=== PATIENT | male | born 1945 | race Caucasian/White ===

== ENCOUNTER 2016-11-18 17:29 | Emergency (ER) | payer MEDICARE, BC ==
[2016-11-18] MEDS ORDERED: Sodium Chloride 0.9% 1,000 ML IV ONE (19:08)
[2016-11-18] MEDS ORDERED: Sodium Chloride 0.9% 10 ML Syringe FLUSH PRN (19:08)
--- NOTE | 2016-11-18 19:16 | EDM.PDOC ---
ED HPI GENERAL MEDICAL PROBLEM - General Chief Complaint: General Stated Complaint: WEAKNESS, UPSET STOMACH Time Seen by Provider: 11/18/16 18:40 Source of Information: Reports: Patient History Limitations: Reports: No limitations - History of Present Illness INITIAL COMMENTS - FREE TEXT/NARRATIVE: c/o malaise and anorexia x 3d pt with choly 07-30-16 in [place], thinks it was infected had a chronic sore on his R 2nd toe, had been on antbx's BID x 2m, not sure of the name of the antbx, finally had amputation by Dr Yadav in [place] 5d ago, has f /u apt in 4d with Dr Yadav PCP Dr Velasquez no pain, had abd bloating and belching, no N/V, just does not feel like eating has taken diet shakes off-and-on for past several yrs, had 2 shakes today, drank 3-4 8-oz glasses H2O today no f/c/d BS 110 postop, BS 180 at 0700 today before eating, much higher than usual which got him concerned, last A1C 5.4, only DM med is metformin 1000 mg BID, usual AM BS 104-110 last WBC 14.3 and BUN/creat 31/1.5 here on 09-22-16, previous CRP >20 07-29-16 just prior to his choly not taking pain meds has PAD bn/l, L>R went home same day from hospital, 5d ago, ate fine 4d ago 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 - Related Data Allergies Allergy/AdvReac Type Severity Reaction Status Date / Time No Known Allergies Allergy Verified 11/18/16 17:58 Home Meds: Home Meds Clopidogrel Bisulfate [Clopidogrel] 75 mg PO DAILY 07/29/16 [History] Hydrochlorothiazide [Hydrochlorothiazide] 25 mg PO DAILY 07/29/16 [History] Lisinopril [Lisinopril] 10 mg PO DAILY 07/29/16 [History] Metoprolol Succinate [Toprol XL] 25 mg PO DAILY 07/29/16 [History] atorvaSTATin [Lipitor] 80 mg PO BEDTIME 07/29/16 [History] metFORMIN HCl [Metformin HCl] 1,000 mg PO BID 07/29/16 [History] Past Medical History HEENT History: Reports: Impaired vision Cardiovascular History: Reports: High cholesterol, Hypertension Musculoskeletal History: Reports: Arthritis, Other (see below) Other Musculoskeletal History: hip pain Endocrine/Metabolic History: Reports: Diabetes, type II Dermatologic History: Reports: Venous stasis dermatitis - Infectious Disease History Infectious Disease History: Reports: Chicken pox, Measles - Past Surgical History HEENT Surgical History: Reports: Tonsillectomy Cardiovascular Surgical History: Reports: Percutaneous transluminal angioplasty GI Surgical History: Reports: Appendectomy, Cholecystectomy Musculoskeletal Surgical History: Reports: Other (see below) Other Musculoskeletal Surgeries/Procedures:: amputated toe Social & Family History - Family History Family Medical History: Noncontributory - Tobacco Use Smoking Status *Q: Never Smoker Second Hand Smoke Exposure: No - Caffeine Use Caffeine Use: Reports: Coffee, Soda - Recreational Drug Use Recreational Drug Use: No ED ROS GENERAL - Review of Systems Review Of Systems: See Below Constitutional: Reports: malaise, weakness, decreased appetite HEENT: Reports: No symptoms Respiratory: Reports: No Symptoms Cardiovascular: Reports: No symptoms Endocrine: Reports: no symptoms GI/Abdominal: Reports: Distension, Other (belching) : Reports: no symptoms Musculoskeletal: Reports: no symptoms Skin: Reports: no symptoms Neurological: Reports: No Symptoms Psychiatric: Reports: No symptoms Hematologic/Lymphatic: Reports: no symptoms Immunologic: Reports: no symptoms ED EXAM, GENERAL - Physical Exam Exam: See Below Exam Limited By: No limitations General Appearance: alert, WD/WN, other (lying supine on table, appears relaxed , fatigued, nontoxic, alert, conversant, not acutely ill) Eye Exam: bilateral eye: normal inspection Ears: normal external exam, hearing grossly normal Nose: normal inspection, normal mucosa, no blood Throat/Mouth: Normal inspection, Normal voice, No airway compromise Head: atraumatic, normocephalic Neck: normal inspection, supple, non-tender, full range of motion Respiratory/Chest: no respiratory distress, lungs clear, normal breath sounds, no accessory muscle use, chest non-tender Cardiovascular: regular rate, rhythm, no rub, other (2/6 FERNANDO at LSB) Peripheral Pulses: 2+: dorsalis pedis (L) GI/Abdominal: normal bowel sounds, soft, non tender, no organomegaly Back Exam: normal inspection Extremities: other (dressing L foot changed daily, last changed 1d ago, minimal d/c on dressing, red serous, no purulence, missing 1st 2 digits (great toe removed at earlier surgery), sutures intact, minimal swell out 1 cm, slight red out 1 cm which is better as per , slight warm out 1 cm, no active d/c) Psychiatric: normal affect, normal mood Skin Exam: Other (b/l VSD changes in pretib area with loss of hair and dark to mar[place] skin, dec'd turgor UE b/lw ith 0.5 sec tenting) Lymphatic: no adenopathy Course - Vital Signs Last Recorded V/S: Last Vital Signs Temp 37.1 C 11/18/16 18:05 Pulse 71 11/18/16 18:05 Resp 20 11/18/16 18:05 BP 125/101 H 11/18/16 18:05 Pulse Ox 99 11/18/16 18:05 - Orders/Labs/Meds Orders: Active Orders 24 hr Category Date Time Status Sodium Chloride 0.9% [Saline Flush] Med 11/18/16 19:08 Active 10 ml FLUSH ASDIRECTED PRN Saline Lock Insert [OM.PC] Routine Oth 11/18/16 19:08 Ordered Medication Orders Sodium Chloride (Saline Flush) 10 ml FLUSH ASDIRECTED PRN PRN Reason: Keep Vein Open Last Admin: 11/18/16 19:23 Dose: 10 ml Labs: Laboratory Tests 11/18/16 11/18/16 11/18/16 Range/Units 19:20 19:20 19:20 WBC 12.0 (4.5-12.0) X10-3/uL RBC 4.82 (4.30-5.75) x10(6)uL Hgb 12.7 (11.5-15.5) g/dL Hct 38.2 (30.0-51.3) % MCV 79.2 L (80-96) fL MCH 26.3 L (27.7-33.6) pg MCHC 33.2 (32.2-35.4) g/dL RDW 14.7 (11.5-15.5) % Plt Count 371 H (125-369) X10(3)uL MPV 7.3 L (7.4-10.4) fL Neut % (Auto) 63.8 (46-82) % Lymph % (Auto) 23.0 (13-37) % [place] % (Auto) 9.4 (4-12) % Eos % (Auto) 3 (1.0-5.0) % Baso % (Auto) 1 (0-2) % Neut # (Auto) 7.6 (1.6-8.3) # Lymph # (Auto) 2.8 (0.6-5.0) # [place] # (Auto) 1.1 (0.0-1.3) # Eos # (Auto) 0.4 (0.0-0.8) # Baso # (Auto) 0.1 (0.0-0.2) # Sodium 131 L (135-145) mmol/L Potassium 5.1 D (3.5-5.3) mmol/L Chloride 97 L (100-110) mmol/L Carbon Dioxide 26 (23-29) mmol/L BUN 30 H (8-23) mg/dL Creatinine 1.3 (0.6-1.3) mg/dL Est Cr Clr Drug Dosing 58.90 mL/min Estimated GFR (MDRD) 54 L (>60) BUN/Creatinine Ratio 23.1 H (9-20) Glucose 145 H (80-116) mg/dL Lactic Acid 1.5 (0.5-2.2) mmol/L Calcium 9.3 (8.6-10.2) mg/dL Total Bilirubin 0.8 (0.1-1.3) mg/dL AST 15 D (5-27) IU/L ALT 20 (14-26) IU/L Alkaline Phosphatase 84 (56-112) IU/L C-Reactive Protein 2.7 H* (0.0-1.0) mg/dL Total Protein 7.4 (6.0-8.0) g/dL Albumin 3.7 (3.2-4.6) g/dL Globulin 3.7 g/dL Albumin/Globulin Ratio 1.0 Urine Color (YELLOW) Urine Appearance (CLEAR) Urine pH (5.0-6.5) Ur Specific [place] (1.010-1.025) Urine Protein (NEGATIVE) mg/dL Urine Glucose (UA) (NEGATIVE) mg/dL Urine Ketones (NEGATIVE) mg/dL Urine Occult Blood (NEGATIVE) Urine Nitrite (NEGATIVE) Urine Bilirubin (NEGATIVE) Urine Urobilinogen (NEGATIVE) mg/dL Ur Leukocyte Esterase (NEGATIVE) Urine RBC (0) Urine WBC (0) Ur Squamous Epith Cells (NS,R,O) Urine Bacteria (NS) 11/18/16 Range/Units 20:40 WBC (4.5-12.0) X10-3/uL RBC (4.30-5.75) x10(6)uL Hgb (11.5-15.5) g/dL Hct (30.0-51.3) % MCV (80-96) fL MCH (27.7-33.6) pg MCHC (32.2-35.4) g/dL RDW (11.5-15.5) % Plt Count (125-369) X10(3)uL MPV (7.4-10.4) fL Neut % (Auto) (46-82) % Lymph % (Auto) (13-37) % [place] % (Auto) (4-12) % Eos % (Auto) (1.0-5.0) % Baso % (Auto) (0-2) % Neut # (Auto) (1.6-8.3) # Lymph # (Auto) (0.6-5.0) # [place] # (Auto) (0.0-1.3) # Eos # (Auto) (0.0-0.8) # Baso # (Auto) (0.0-0.2) # Sodium (135-145) mmol/L Potassium (3.5-5.3) mmol/L Chloride (100-110) mmol/L Carbon Dioxide (23-29) mmol/L BUN (8-23) mg/dL Creatinine (0.6-1.3) mg/dL Est Cr Clr Drug Dosing mL/min Estimated GFR (MDRD) (>60) BUN/Creatinine Ratio (9-20) Glucose (80-116) mg/dL Lactic Acid (0.5-2.2) mmol/L Calcium (8.6-10.2) mg/dL Total Bilirubin (0.1-1.3) mg/dL AST (5-27) IU/L ALT (14-26) IU/L Alkaline Phosphatase (56-112) IU/L C-Reactive Protein (0.0-1.0) mg/dL Total Protein (6.0-8.0) g/dL Albumin (3.2-4.6) g/dL Globulin g/dL Albumin/Globulin Ratio Urine Color Yellow (YELLOW) Urine Appearance Clear (CLEAR) Urine pH 5.0 (5.0-6.5) Ur Specific [place] 1.020 (1.010-1.025) Urine Protein Negative (NEGATIVE) mg/dL Urine Glucose (UA) Normal (NEGATIVE) mg/dL Urine Ketones 15 H (NEGATIVE) mg/dL Urine Occult Blood Negative (NEGATIVE) Urine Nitrite Negative (NEGATIVE) Urine Bilirubin Small H (NEGATIVE) Urine Urobilinogen Normal (NEGATIVE) mg/dL Ur Leukocyte Esterase Negative (NEGATIVE) Urine RBC Not seen (0) Urine WBC 0-5 (0) Ur Squamous Epith Cells Many H (NS,R,O) Urine Bacteria Few H (NS) Meds: Medications Generic Name Dose Route Start Last Admin Trade Name Freq PRN Reason Stop Dose Admin Sodium Chloride 10 ml 11/18/16 19:08 11/18/16 19:23 Saline Flush FLUSH 10 ml ASDIRECTED PRN Administration Keep Vein Open Discontinued Medications Generic Name Dose Route Start Last Admin Trade Name Freq PRN Reason Stop Dose Admin Sodium Chloride 1,000 mls @ 999 mls/hr 11/18/16 19:08 11/18/16 19:23 Normal Saline IV 11/18/16 20:08 999 mls/hr .BOLUS ONE Administration - Re-Assessments/Exams Free Text/Narrative Re-Assessment/Exam: 11/18/16 21:40 labs reviewed with pt, other dehydration pt's labs are fairly unremarkable, mild inc of CRP c/w postop healing, no clear indication of infection, no clear reason for his current anorexia, however no leukocytosis or left shift or fever , pt cautioned that infection still needs to be considered and that monitoring him closely will b Departure - Departure Time of Disposition: 21:42 Disposition: Home, Self-Care 01 Condition: good Clinical Impression: Dehydration Forms: ED Department Discharge Additional Instructions: Continue on current meds. Increase fluids, at least 2 liters daily without caffeine. Increase nutrition. Rest. May work but do not overdo it. See your surgeon Dr Yadav in 4 days as scheduled. See your PCP in 2 days if you are not better. Return to ED if you are feeling worse. Call your Physician or Return to Emergency Department if: * Your condition worsens in any way. * You develop fever greater than 100.4. * You have vomiting that does not stop with medications. * You have pain that is not controlled with medications. - My Orders Last 24 Hours: My Active Orders 11/18/16 19:08 Sodium Chloride 0.9% [Saline Flush] 10 ml FLUSH ASDIRECTED PRN Saline Lock Insert [OM.PC] Routine - Assessment/Plan Last 24 Hours: My Active Orders 11/18/16 19:08 Sodium Chloride 0.9% [Saline Flush] 10 ml FLUSH ASDIRECTED PRN Saline Lock Insert [OM.PC] Routine
[2016-11-18 22:17] VITALS: BP 108/61
== END 2016-11-18 22:07 | disposition home or self-care (01) ==
LOC: FB.ED 17:29
DX: E86.0 Dehydration (principal); I10 Essential (primary) hypertension; E78.00 Pure hypercholesterolemia, unspecified; E11.9 Type 2 diabetes mellitus without complications; M19.90 Unspecified osteoarthritis, unspecified site; Z79.899 Other long term (current) drug therapy; Z79.84 Long term (current) use of oral hypoglycemic drugs; Z90.49 Acquired absence of other specified parts of digestive tract; Z98.890 Other specified postprocedural states
CPT/HCPCS: 36415; 80053; 81001; 83605; 85025; 86140; 96360; 99284; J7040; J7050

== ENCOUNTER 2016-11-20 11:03 | Observation (INO) | payer MEDICARE, BC ==
[2016-11-20] MEDS ORDERED: Sodium Chloride 0.9% 1,000 ML IV ONE (11:14)
--- NOTE | 2016-11-20 12:13 | CR ---
INDICATION: Syncope. CHEST: AP portable upright view of the chest was obtained. No comparison chest x-ray was available. The heart did not appear enlarged. The aorta is minimally tortuous with minimal calcification suggested in the arch of the aorta. Overlying EKG leads are noted. An active infiltrate or effusion was not identified. IMPRESSION: No acute process. MTDD
--- NOTE | 2016-11-20 12:19 | EDM.PDOC ---
[id number] Time Seen by Provider: 11/20/16 11:03 Source: Reports: Patient History Limitations: Reports: No limitations - History of Present Illness INITIAL COMMENTS - FREE TEXT/NARRATIVE: c/o syncope pt seen here in ED 2d ago by myself with c/o malaise and anorexia, w/u neg except for dehydration, he was advised to drink more fluids and to continue his protein shakes. Lab w/u was unrevealing except for the dehydration. 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 Today he was not feeling better and called PCP for an apt today, as he had been instructed. While talking to Dr Velasquez he felt lightheaded and had a syncopal episode. Did not eat bfast, took all of his AM meds. Dr Velasquez was considering decreasing some of his meds when he had the syncopal event. SBP 110 when lying on floor, BP 117/55 by EMS, BP 95/55 later here, HR low 60s as per EMS, BS 165 per EMS. has been on antibiotics x 2m for toe ulcer, had toe amputation 6d ago no f/c/d Dr Velasquez requested a cardiac w/u minor chronic back pain now, otherwise no pain her, no sob - Related Data Allergies/ADRs: Allergies Allergy/AdvReac Type Severity Reaction Status Date / Time No Known Allergies Allergy Verified 11/20/16 11:20 Home Meds: Home Meds Clopidogrel Bisulfate [Clopidogrel] 75 mg PO DAILY 07/29/16 [History] Hydrochlorothiazide [Hydrochlorothiazide] 25 mg PO DAILY 07/29/16 [History] Lisinopril [Lisinopril] 10 mg PO DAILY 07/29/16 [History] Metoprolol Succinate [Toprol XL] 25 mg PO DAILY 07/29/16 [History] atorvaSTATin [Lipitor] 80 mg PO BEDTIME 07/29/16 [History] metFORMIN HCl [Metformin HCl] 1,000 mg PO BID 07/29/16 [History] Past Medical History HEENT History: Reports: Impaired vision Cardiovascular History: Reports: High cholesterol, Hypertension Musculoskeletal History: Reports: Arthritis, Other (see below) Other Musculoskeletal History: hip pain Endocrine/Metabolic History: Reports: Diabetes, type II Dermatologic History: Reports: Venous stasis dermatitis - Infectious Disease History Infectious Disease History: Reports: Chicken pox, Measles - Past Surgical History HEENT Surgical History: Reports: Tonsillectomy Cardiovascular Surgical History: Reports: Percutaneous transluminal angioplasty GI Surgical History: Reports: Appendectomy, Cholecystectomy Musculoskeletal Surgical History: Reports: Other (see below) Other Musculoskeletal Surgeries/Procedures:: amputated toe Social & Family History - Family History Family Medical History: Noncontributory - Tobacco Use Smoking Status *Q: Never Smoker Second Hand Smoke Exposure: No - Caffeine Use Caffeine Use: Reports: Coffee - Recreational Drug Use Recreational Drug Use: No ED ROS GENERAL - Review of Systems Review Of Systems: See Below Constitutional: Reports: weakness, decreased appetite HEENT: Reports: No symptoms Respiratory: Reports: No Symptoms Cardiovascular: Reports: No symptoms Endocrine: Reports: no symptoms GI/Abdominal: Reports: No symptoms : Reports: no symptoms Musculoskeletal: Reports: no symptoms Skin: Reports: no symptoms Neurological: Reports: Syncope Psychiatric: Reports: No symptoms Hematologic/Lymphatic: Reports: no symptoms Immunologic: Reports: no symptoms ED EXAM, NEURO - Physical Exam Exam: See Below Exam Limited By: No limitations General Appearance: alert, WD/WN, no apparent distress, other (pleasant, alert, nontoxic, NAD, conversant) Eye Exam: bilateral eye: EOMI, normal inspection Ears: normal external exam, hearing grossly normal Nose: normal inspection, normal mucosa, no blood Throat/Mouth: Normal inspection, Normal lips, Normal teeth, Normal gums, Normal oropharynx, Normal voice, No airway compromise Head Exam: atraumatic, normocephalic Neck: normal inspection, supple, non-tender, full range of motion Respiratory/Chest: no respiratory distress, lungs clear, normal breath sounds, no accessory muscle use, chest non-tender Cardiovascular: regular rate, rhythm, no edema, no gallop, no rub, other (no tachy, 2/6 FERNANDO at LSB) GI/Abdominal: normal bowel sounds, soft, non tender, no organomegaly, no distention, no mass Neurological: alert, normal mood/affect, CN II-XII intact, no motor/sensory deficits, oriented x 3 Back Exam: normal inspection, full range of motion, NT Extremities: normal inspection, normal range of motion, non-tender, no pedal edema, normal capillary refill Psychiatric: normal affect, normal mood Skin Exam: Warm, Dry, Intact, Normal color, No rash Course - Vital Signs Last Recorded V/S: Last Vital Signs Temp 36.6 C 11/20/16 14:07 Pulse 62 11/20/16 14:07 Resp 16 11/20/16 14:07 BP 122/62 11/20/16 14:07 Pulse Ox 98 11/20/16 14:07 Orthostatic Blood Pressure [ 105/63 Standing] Orthostatic Blood Pressure [ 116/57 Sitting] Orthostatic Blood Pressure [ 132/68 Supine] - Orders/Labs/Meds Orders: Active Orders 24 hr Category Date Time Status Patient Status [ADT] Routine ADT 11/20/16 13:45 Active Intake and Output [RC] 06,14,22 Care 11/20/16 13:47 Active Orthostatic Vital Signs [RC] ASDIRECTED Care 11/20/16 12:59 Active Oxygen Therapy [RC] PRN Care 11/20/16 13:45 Active Up With Assistance [RC] ASDIRECTED Care 11/20/16 13:44 Active VTE/DVT Education [RC] Per Unit Routine Care 11/20/16 13:45 Active Vital Signs [RC] Q4H Care 11/20/16 13:45 Active 2 Gram Sodium Diet [DIET] Diet 11/20/16 Dinner Active UA W/MICROSCOPIC [URIN] Stat Lab 11/20/16 11:11 Uncollected Resuscitation Status Routine Resus Stat 11/20/16 13:44 Ordered EKG 12 Lead [EK] Routine Ther 11/20/16 11:11 Ordered Medication Orders Atorvastatin Calcium (Lipitor) 80 mg PO BEDTIME [facility] Clopidogrel Bisulfate (Plavix) 75 mg PO DAILY [facility] Enoxaparin Sodium (Lovenox) 40 mg SUBCUT Q24H [facility] Last Admin: 11/20/16 14:47 Dose: 40 mg Sodium Chloride (Normal Saline) 1,000 mls @ 100 mls/hr IV ASDIRECTED [facility] Last Admin: 11/20/16 14:45 Dose: 100 mls/hr Metoprolol Succinate (Toprol Xl) 25 mg PO DAILY [facility] Labs: Laboratory Tests 11/20/16 11/20/16 11/20/16 Range/Units 11:25 11:25 11:25 WBC 11.6 (4.5-12.0) X10-3/uL RBC 4.76 (4.30-5.75) x10(6)uL Hgb 12.5 (11.5-15.5) g/dL Hct 38.6 (30.0-51.3) % MCV 81.1 (80-96) fL MCH 26.3 L (27.7-33.6) pg MCHC 32.5 (32.2-35.4) g/dL RDW 15.0 (11.5-15.5) % Plt Count 306 (125-369) X10(3)uL MPV 7.6 (7.4-10.4) fL Add Manual Diff Yes Neutrophils % (Manual) 75 (46-82) % Lymphocytes % (Manual) 16 (13-37) % Monocytes % (Manual) 8 (4-12) % Eosinophils % (Manual) 1 (0-5) % Poikilocytosis Few Ovalocytes Few [place] Cells Moderate H Sodium 130 L (135-145) mmol/L Potassium 4.3 (3.5-5.3) mmol/L Chloride 98 L (100-110) mmol/L Carbon Dioxide 18 L (23-29) mmol/L BUN 21 (8-23) mg/dL Creatinine 1.2 (0.6-1.3) mg/dL Est Cr Clr Drug Dosing 63.81 mL/min Estimated GFR (MDRD) 60 (>60) BUN/Creatinine Ratio 17.5 (9-20) Glucose 164 H (80-116) mg/dL Lactic Acid (0.5-2.2) mmol/L Calcium 8.7 (8.6-10.2) mg/dL Total Bilirubin 1.0 (0.1-1.3) mg/dL AST 27 D (5-27) IU/L ALT 28 H D (14-26) IU/L Alkaline Phosphatase 89 (56-112) IU/L Creatine Kinase 48 L (60-160) IU/L Troponin I < 0.01 L (0.02-0.06) NG/ML C-Reactive Protein 2.1 H (0.0-1.0) mg/dL B-Natriuretic Peptide (0-100) pg/mL Total Protein 7.0 (6.0-8.0) g/dL Albumin 3.7 (3.2-4.6) g/dL Globulin 3.3 g/dL Albumin/Globulin Ratio 1.1 11/20/16 11/20/16 Range/Units 11:25 11:25 WBC (4.5-12.0) X10-3/uL RBC (4.30-5.75) x10(6)uL Hgb (11.5-15.5) g/dL Hct (30.0-51.3) % MCV (80-96) fL MCH (27.7-33.6) pg MCHC (32.2-35.4) g/dL RDW (11.5-15.5) % Plt Count (125-369) X10(3)uL MPV (7.4-10.4) fL Add Manual Diff Neutrophils % (Manual) (46-82) % Lymphocytes % (Manual) (13-37) % Monocytes % (Manual) (4-12) % Eosinophils % (Manual) (0-5) % Poikilocytosis Ovalocytes [place] Cells Sodium (135-145) mmol/L Potassium (3.5-5.3) mmol/L Chloride (100-110) mmol/L Carbon Dioxide (23-29) mmol/L BUN (8-23) mg/dL Creatinine (0.6-1.3) mg/dL Est Cr Clr Drug Dosing mL/min Estimated GFR (MDRD) (>60) BUN/Creatinine Ratio (9-20) Glucose (80-116) mg/dL Lactic Acid 1.6 (0.5-2.2) mmol/L Calcium (8.6-10.2) mg/dL Total Bilirubin (0.1-1.3) mg/dL AST (5-27) IU/L ALT (14-26) IU/L Alkaline Phosphatase (56-112) IU/L Creatine Kinase (60-160) IU/L Troponin I (0.02-0.06) NG/ML C-Reactive Protein (0.0-1.0) mg/dL B-Natriuretic Peptide 48 (0-100) pg/mL Total Protein (6.0-8.0) g/dL Albumin (3.2-4.6) g/dL Globulin g/dL Albumin/Globulin Ratio Meds: Medications Generic Name Dose Route Start Last Admin Trade Name Freq PRN Reason Stop Dose Admin Atorvastatin Calcium 80 mg 11/20/16 21:00 Lipitor PO BEDTIME ASHLEY Clopidogrel Bisulfate 75 mg 11/21/16 09:00 Plavix PO DAILY ASHLEY Enoxaparin Sodium 40 mg 11/20/16 14:00 11/20/16 14:47 Lovenox SUBCUT 40 mg Q24H ASHLEY Administration Sodium Chloride 1,000 mls @ 100 mls/hr 11/20/16 14:00 11/20/16 14:45 Normal Saline IV 100 mls/hr ASDIRECTED ASHLEY Administration Metoprolol Succinate 25 mg 11/21/16 09:00 Toprol Xl PO DAILY ASHLEY Discontinued Medications Generic Name Dose Route Start Last Admin Trade Name Freq PRN Reason Stop Dose Admin Sodium Chloride 1,000 mls @ 999 mls/hr 11/20/16 11:14 11/20/16 11:49 Normal Saline IV 11/20/16 12:14 999 mls/hr .BOLUS ONE Administration - Re-Assessments/Exams Free Text/Narrative Re-Assessment/Exam: 11/20/16 13:38 still orthostatic after 2 liters NS, BP 132/68 with HR 61 supine, BP 105/63 with HR 73 standing d/w Dr Velasquez who recommended admitting to observation to Dr Nava, holding HCTZ and lisinopril and metformin CRP is lower in 2d to 2.1, c/w healing of toe amputation unable to produce a urine for u/a after 2 liters NS, u/a was neg 2d ago BUN dec'd 30 to 21 in past 2d, indicating pt is drinking more at home, yet still is orthostatic Departure - Departure Time of Disposition: 14:00 Disposition: Refer to Observation Condition: good Clinical Impression: Syncope, Orthostasis, Dehydration, Hyponatremia - My Orders Last 24 Hours: My Active Orders 11/20/16 11:11 UA W/MICROSCOPIC [URIN] Stat EKG 12 Lead [EK] Routine 11/20/16 12:59 Orthostatic Vital Signs [RC] ASDIRECTED 11/20/16 13:44 Up With Assistance [RC] ASDIRECTED Resuscitation Status Routine 11/20/16 13:45 Patient Status [ADT] Routine Oxygen Therapy [RC] PRN VTE/DVT Education [RC] Per Unit Routine Vital Signs [RC] Q4H 11/20/16 13:47 Intake and Output [RC] 06,14,22 11/20/16 Dinner 2 Gram Sodium Diet [DIET] - Assessment/Plan Last 24 Hours: My Active Orders 11/20/16 11:11 UA W/MICROSCOPIC [URIN] Stat EKG 12 Lead [EK] Routine 11/20/16 12:59 Orthostatic Vital Signs [RC] ASDIRECTED 11/20/16 13:44 Up With Assistance [RC] ASDIRECTED Resuscitation Status Routine 11/20/16 13:45 Patient Status [ADT] Routine Oxygen Therapy [RC] PRN VTE/DVT Education [RC] Per Unit Routine Vital Signs [RC] Q4H 11/20/16 13:47 Intake and Output [RC] 06,14,22 11/20/16 Dinner 2 Gram Sodium Diet [DIET]
[2016-11-20] MEDS ORDERED: Enoxaparin 40 MG/0.4 ML Syringe SUBCUT SCH ×2 (13:45→14:00)
[2016-11-20] MEDS: Sodium Chloride 0.9% 1,000 ML IV SCH (14:45)
[2016-11-20] MEDS ORDERED: Loperamide 2 MG Cap PO PRN (17:16)
[2016-11-20] MEDS ORDERED: Ondansetron 4 MG Tab.DIS PO PRN (17:16)
--- NOTE | 2016-11-20 17:22 | PCM.HP ---
H&P History of Present Illness - General Date of Service: 11/20/16 Admit Problem/Dx: Admission Diagnosis/Problem Admission Diagnosis/Problem Syncope Source of Information: Patient, Old records, RN notes reviewed History Limitations: Reports: No limitations - History of Present Illness Initial Comments - Free Text/Narative: 71-year-old male was brought in to the ER by the . He was in the doctor's office office when he developed syncope,while seated. He lost consciousness for an unclear period of time,but no seizure activity. He had been unwell for the last week with decreased oral intake, dehydration, nausea, no appetite and diarrhea which started this morning. He also had toe surgery last Sunday and was put on Augmentin. It's been generally feeling weak denies any fever chills chest pain or shortness of breath. He has a history of type 2 diabetes, hypertension and peripheral vascular disease. - Related Data Allergies/Adverse Reactions: Allergies Allergy/AdvReac Type Severity Reaction Status Date / Time No Known Allergies Allergy Verified 11/20/16 11:20 Home Medications: Home Meds Clopidogrel Bisulfate [Clopidogrel] 75 mg PO DAILY 07/29/16 [History] Lisinopril [Lisinopril] 10 mg PO DAILY 07/29/16 [History] Metoprolol Succinate [Toprol XL] 25 mg PO DAILY 07/29/16 [History] Amoxicillin/Clavulanate K [Augmentin 875-125 MG] 1 tab PO BID 11/20/16 [History] Aspirin [Adult Low Dose Aspirin EC] 81 mg PO BEDTIME 11/20/16 [History] Loperamide [Imodium] 2 mg PO Q6H PRN 11/20/16 [History] Ondansetron [Zofran] 4 mg PO Q8H PRN 11/20/16 [History] Past Medical History HEENT History: Reports: Impaired vision Cardiovascular History: Reports: High cholesterol, Hypertension, PVD Musculoskeletal History: Reports: Arthritis, Other (see below) Other Musculoskeletal History: hip pain Neurological History: Reports: Neuropathy, diabetic, Neuropathy, peripheral Endocrine/Metabolic History: Reports: Diabetes, type II Oncologic (Cancer) History: Reports: Basal cell carcinoma Other Oncologic History: removed from left shoulder Dermatologic History: Reports: Venous stasis dermatitis - Infectious Disease History Infectious Disease History: Reports: Chicken pox, Measles - Past Surgical History HEENT Surgical History: Reports: Tonsillectomy Cardiovascular Surgical History: Reports: Percutaneous transluminal angioplasty GI Surgical History: Reports: Appendectomy, Cholecystectomy Musculoskeletal Surgical History: Reports: Other (see below) Other Musculoskeletal Surgeries/Procedures:: amputated toe Social & Family History - Family History Family Medical History: Noncontributory - Tobacco Use Smoking Status *Q: Never Smoker Second Hand Smoke Exposure: No - Caffeine Use Caffeine Use: Reports: Coffee Other Caffeine Use: 2 cups QAM - Recreational Drug Use Recreational Drug Use: No H&P Review of Systems - Review of Systems: Review Of Systems: ROS reveals no pertinent complaints other than HPI. Exam - Exam Exam: See Below - Vital Signs Vital Signs: Last Vital Signs Temp 98 F 11/20/16 14:07 Pulse 62 11/20/16 14:07 Resp 16 11/20/16 14:07 BP 122/62 11/20/16 14:07 Pulse Ox 98 11/20/16 14:07 Weight: 119.113 kg - Exam General: alert, oriented, 4 HEENT: PERRLA, Hearing intact, Mucosa moist & pink, Nares patent, Normal nasal septum, Posterior pharynx clear, Conjunctiva clear, EOMI, EACs clear, TMs clear Neck: supple, trachea midline, 2 Lungs: Clear to auscultation, Normal respiratory effort Cardiovascular: regular rate, regular rhythm Abdomen: normal bowel sounds, soft (Male) Exam: No hernia, Normal inspection, Normal prostate, Circumcised Rectal (Males) Exam: Normal exam, Normal rectal tone, Prostate normal, Deferred Back Exam: normal inspection, full range of motion, NT Extremities: normal inspection, other (dressing left toe,big) Skin: warm, dry, intact Neurological: cranial nerves intact, reflexes equal bilateral Neuro Extensive - Mental Status: alert, oriented x3, normal mood/affect, normal cognition Neuro Extensive - Motor, Sensory, Reflexes: CN II-XII intact, normal gait, normal reflexes Psychiatric: alert, normal affect, normal mood - Patient Data Result Diagrams: 11/20/16 11:25 11/20/16 11:25 EKG INTERPRETATION Rhythm: NSR *Q Meaningful Use (ADM) - VTE *Q VTE Criteria *Q: - Stroke *Q Stroke Criteria *Q: - AMI *Q AMI Criteria *Q: - Problem List (1) Diabetes type 2 with atherosclerosis of arteries of extremities SNOMED Code(s): 698821992 ICD Code: E11.59 - TYPE 2 DIABETES MELLITUS WITH OTH CIRCULATORY COMPLICATIONS; I70.209 - UNSP ATHSCL [place] ARTERIES OF EXTREMITIES, UNSP EXTREMITY Status: Acute Current Visit: Yes Problem Details: Continue Accu- Chek, and a diabetic diet. (2) PVD (peripheral vascular disease) SNOMED Code(s): 341981503 ICD Code: I73.9 - PERIPHERAL VASCULAR DISEASE, UNSPECIFIED Status: Chronic Current Visit: Yes Problem Details: Optimize glucose control (3) HTN (hypertension) SNOMED Code(s): 51527056 ICD Code: I10 - ESSENTIAL (PRIMARY) HYPERTENSION Status: Acute Current Visit: Yes Qualifiers: Hypertension type: essential hypertension Qualified Code(s): I10 - Essential (primary) hypertension (4) Diabetic foot ulcer SNOMED Code(s): 742694241 ICD Code: E11.621 - TYPE 2 DIABETES MELLITUS WITH FOOT ULCER; L97.509 - NON- PRESSURE CHRONIC ULCER OTH PRT UNSP FOOT W UNSP SEVERITY Status: Acute Current Visit: Yes Qualifiers: Diabetes mellitus type: type 2 (5) Dehydration SNOMED Code(s): 63114656 ICD Code: E86.0 - DEHYDRATION Status: Acute Current Visit: Yes (6) Orthostasis SNOMED Code(s): 910907143, 327916594 ICD Code: I95.1 - ORTHOSTATIC HYPOTENSION Status: Acute Current Visit: Yes (7) Syncope SNOMED Code(s): 085095502 ICD Code: R55 - SYNCOPE AND COLLAPSE Status: Acute Current Visit: Yes Qualifiers: Syncope type: unspecified Qualified Code(s): R55 - Syncope and collapse Problem List Initiated/Reviewed/Updated: Yes Orders Last 24hrs: Active Orders 24 hr Category Date Time Status Blood Glucose Check, Bedside [] 07,1130,1730,21 Care 11/20/16 13:57 Active Dressing Change [Wound Care] [] ,, Care 11/20/16 13:56 Active EKG Documentation Completion [] ASDIRECTED Care 11/20/16 13:53 Active Telemetry Monitoring [Cardiac Monitoring] [] ,16, Care 11/20/16 14:52 Active Consistent Carbohydrate Diet [DIET] Diet 11/20/16 Dinner Active CV Carotid Duplex Comp [US] Routine Exams 11/20/16 13:54 Taken BASIC METABOLIC PANEL,BMP [CHEM] AM Lab 11/21/16 05:11 Ordered BASIC METABOLIC PANEL,BMP [CHEM] AM Lab 11/22/16 05:11 Ordered CBC WITH AUTO DIFF [HEME] AM Lab 11/21/16 05:11 Ordered CBC WITH AUTO DIFF [HEME] AM Lab 11/22/16 05:11 Ordered TROPONIN I [CHEM] AM Lab 11/21/16 05:11 Ordered Ampicillin/Sulbactam Na [Unasyn] 3 gm Med 11/20/16 17:30 Ordered Sodium Chloride 0.9% [Normal Saline] 100 ml IV Q6HR Aspirin [Adult Low Dose Aspirin EC] Med 11/20/16 21:00 Ordered 81 mg PO BEDTIME Clopidogrel [Plavix] Med 11/21/16 09:00 Active 75 mg PO DAILY Enoxaparin [Lovenox] Med 11/20/16 14:00 Active 40 mg SUBCUT Q24H Insulin Aspart [NovoLOG] Med 11/20/16 18:00 Ordered See Protocol SUBCUT TIDMEALS Loperamide [Imodium] Med 11/20/16 17:16 Ordered 2 mg PO Q6H PRN Metoprolol Succinate [Toprol XL] Med 11/21/16 09:00 Active 25 mg PO DAILY Ondansetron [Zofran] Med 11/20/16 17:16 Ordered 4 mg PO Q8H PRN Sodium Chloride 0.9% [Normal Saline] 1,000 ml Med 11/20/16 14:00 Active IV ASDIRECTED EKG 12 Lead [EK] AM Ther 11/21/16 05:11 Ordered Medication Orders Clopidogrel Bisulfate (Plavix) 75 mg PO DAILY [facility] Enoxaparin Sodium (Lovenox) 40 mg SUBCUT Q24H [facility] Last Admin: 11/20/16 14:47 Dose: 40 mg Sodium Chloride (Normal Saline) 1,000 mls @ 100 mls/hr IV ASDIRECTED [facility] Last Admin: 11/20/16 14:45 Dose: 100 mls/hr Ampicillin Sodium/Sulbactam (Sodium 3 gm/ Sodium Chloride) 100 mls @ 100 mls/ hr IV Q6HR [facility] Insulin Aspart (Novolog) 0 unit SUBCUT TIDMEALS [facility] PRN Reason: Protocol Metoprolol Succinate (Toprol Xl) 25 mg PO DAILY [facility] Assessment/Plan Comment:: His EKG is normal. We will admit him under telemetry. Would replace fluids with normal saline, and encourage oral rehydration and a diabetic diet. I elected to treat his toe infection with Unasyn in place with I to home tomorrow.
[2016-11-20] MEDS: Insulin Aspart 100 Units/ML 3 ML Pen SUBCUT SCH (18:03)
[2016-11-20] MEDS: Ampicillin/Sulbactam Na 3 GM in Sodium Chloride 0.9% 100 ML IV SCH ×2 (18:48→23:51)
[2016-11-20] MEDS ORDERED: atorvaSTATin 40 MG Tab PO SCH (21:00)
[2016-11-20] MEDS ORDERED: Aspirin 81 MG Tab.EC PO SCH (21:00)
[2016-11-21] MEDS: Sodium Chloride 0.9% 1,000 ML IV SCH (01:55)
[2016-11-21] MEDS ORDERED: Acetaminophen 325 MG Tab PO PRN (02:02)
[2016-11-21] MEDS: Ampicillin/Sulbactam Na 3 GM in Sodium Chloride 0.9% 100 ML IV SCH (05:55)
[2016-11-21 07:34] VITALS: BP 104/58
[2016-11-21] MEDS: Insulin Aspart 100 Units/ML 3 ML Pen SUBCUT SCH (07:46)
[2016-11-21] MEDS ORDERED: Clopidogrel 75 MG Tab *PTOM PO SCH (09:00)
[2016-11-21] MEDS ORDERED: Metoprolol Succinate 25 MG Tab.ER *PTOM PO SCH (09:00)
--- NOTE | 2016-11-21 09:06 | PN ---
DATE SEEN: 11/21/2016 REASON FOR VISIT: Syncope. HISTORY OF PRESENT ILLNESS: This is a 71-year-old male who was admitted for syncopal event, thought to be due to dehydration, was seen in the office by Dr. Velasquez and had symptoms while he was there. He had been having problems with eating all the week. He has type 2 diabetes, poorly controlled with a recent diabetic foot ulcer, and amputation of the toe. An ultrasound done yesterday, verbal report showed that he had a "José Manuel" in the left carotid. He has no symptoms of blindness, weakness of one side, or any speech difficulty. Denies any chest pain. SOCIAL HISTORY: Does not smoke. ALLERGIES: Please see the nurses' notes. MEDICATIONS: Please see the nurses' notes. PHYSICAL EXAM: VITAL SIGNS: He has a normal blood pressure this morning of 104/58, temperature is 97.7, pulse is 63. EARS, NOSE, AND THROAT: Negative. HEAD: Normal size. CHEST: Clear. NECK: No carotid bruits. CARDIOVASCULAR: S1 and S2 are normal with sinus arrhythmia. There is a soft murmur around the left lower sternal border. EXTREMITIES: No edema. ABDOMEN: Soft. LABORATORY DATA: Electrolytes are back to normal except sodium 133. Chloride and CO2 normal. Lactic acid negative. Troponin less than 0.01. IMPRESSION: 1. Syncope due to dehydration. 2. Diabetic foot ulcer. 3. Type 2 diabetes. 4. Carotid artery disease. 5. History of peripheral vascular disease. 6. Hypertension, stable. 7. Orthostatic hypotension. PLAN: I will discharge him home today. I will discontinue all his blood pressure medications. I also discontinued metformin and Augmentin. He has a followup appointment with his process engineering intern tomorrow to see if he needs additional antibiotics. He also has an appointment with Dr. Velasquez later next week. In the meantime, continue with diabetic diet. Check blood pressure daily. Return to the ED with any worsening symptoms. I spent more than 35 minutes in discharging this morning. /[id number] [id number] JOHN/MARIAN
[2016-11-21] MEDS ORDERED: METOPROLOL SUCCINATE 25 MG PO ONE (09:45)
--- NOTE | 2016-11-21 14:05 | US ---
INDICATION: Syncope. DUPLEX ULTRASOUND, CEREBRAL ARTERIES: Utilizing 2-D real time, duplex Doppler spectral analysis, and color flow imaging, examination of the cerebral arteries was obtained and revealed antegrade vertebral artery flow bilaterally. Moderate intimal thickening is noted. Irregular, partially calcified plaques are noted at the bifurcations - branches , somewhat more prominent on the left than right. Higher velocities are noted in the right ICA, suggesting at least a moderate degree of stenosis in the mid to distal portion of the left ICA - at least 50-69% stenosis. Visually, stenosis of approximately 50% is suggested bilaterally, although the plaque on the right does not appear as prominent. Ulcerations in plaques bilaterally are suggested. However, there may be some dissection of plaques on the left at the bulb. ICA/CCA ratios were 1.17 and 1.48 on the right and left respectively. The higher velocities in the left ICA were 126, 149, and 153 cm per second, with some elevation of the diastolic values up to 40 in the mid ICA on the left. IMPRESSION: 1. Stenosis in the range of 50-69% bilaterally in the ICAs. Perhaps greater stenosis and possible complication on the left is suggested with the possibility of dissection of the left ICA plaque. Ulcerations in the plaques bilaterally cannot be excluded additionally. 2. Antegrade vertebral artery flow bilaterally. Report faxed to Dr. Nava and Dr. Velasquez on 11/20/2016 at 1410 hours. [facility]
== END 2016-11-21 10:09 | disposition home or self-care (01) ==
LOC: FB.ED 11:03 → INTOOBSV 13:47 → FB.MS 13:47
PROVIDERS: ADMIT Family Medicine; ATTEND Family Medicine
DX: E11.59 Type 2 diabetes mellitus with other circulatory complications (principal); I70.209 Unspecified atherosclerosis of native arteries of extremities, unspecified extremity; I73.9 Peripheral vascular disease, unspecified; I10 Essential (primary) hypertension; L97.509 Non-pressure chronic ulcer of other part of unspecified foot with unspecified severity; E86.0 Dehydration; I95.1 Orthostatic hypotension; R55 Syncope and collapse; Z79.899 Other long term (current) drug therapy; E78.00 Pure hypercholesterolemia, unspecified; Z79.84 Long term (current) use of oral hypoglycemic drugs; Z90.49 Acquired absence of other specified parts of digestive tract; Z98.890 Other specified postprocedural states
CPT/HCPCS: 36415; 71010; 80048; 80053; 81001; 82550; 82962; 83605; 83880; 84484; 85025; 86140; 93005; 93880; 96361; 96365; 96366; 96372; 99285; A9270; G0378; J0295; J1650; J7030; J7040; 96360; 99217; 99219

== ENCOUNTER 2017-01-04 08:19 | Inpatient (IN) | payer MEDICARE, BC ==
[2017-01-04] MEDS: Piperacillin/Tazobactam 4.5 GM in Sodium Chloride 0.9% 100 ML IV SCH ×2 (12:43→20:04)
[2017-01-04] MEDS: Diclofenac Sodium 1% Gel 100 GM Tube TOP SCH ×3 (13:31→20:13)
[2017-01-04] MEDS: Acetaminophen/HYDROcodone 325-5 MG Tab PO PRN ×2 (16:05→20:11)
[2017-01-04] MEDS: metFORMIN 500 MG Tab PO SCH (17:58)
--- NOTE | 2017-01-04 18:27 | PCM.HP ---
H&P History of Present Illness - General Date of Service: 01/04/17 Admit Problem/Dx: Admission Diagnosis/Problem Admission Diagnosis/Problem Osteomyelitis Source of Information: Patient History Limitations: Reports: No Limitations - History of Present Illness Initial Comments - Free Text/Narative: This is a 71-year-old male patient has diabetes and peripheral vascular disease. He had osteomyelitis in the toes of his left foot. He had amputation on 12/26/14. This was of all his toes. He had a balloon AngioJet in his his left leg a few days ago to get blood flow. He's been seeing the infectious disease doctor [facility] and he comes here for antibiotic therapy. He denies fevers, chills, left foot pain. He states he's lost 80 pounds in last couple years. He had hypertension and now is controlled without medications. He states his A1c is running under 6. Right Elbow Pain Score (Numeric/FACES): 4 - Related Data Allergies/Adverse Reactions: Allergies Allergy/AdvReac Type Severity Reaction Status Date / Time No Known Allergies Allergy Verified 11/20/16 11:20 Home Medications: Home Meds Clopidogrel Bisulfate [Clopidogrel] 75 mg PO DAILY 07/29/16 [History] Acetaminophen/HYDROcodone [[place] 325-5 MG] 1 - 2 tab PO Q4H PRN 01/04/17 [ History] Diclofenac Sodium [Voltaren 1%] 4 gm TP QID 01/04/17 [History] Metoprolol Succinate [Toprol XL] 12.5 mg PO DAILY 01/04/17 [History] metFORMIN [Glucophage] 500 mg PO BIDMEALS 01/04/17 [History] Past Medical History HEENT History: Reports: Impaired Vision Cardiovascular History: Reports: High Cholesterol, Hypertension, PVD, Other ( See Below) Gastrointestinal History: Reports: Other (See Below) Other Gastrointestinal History: intermittent constipation/diarrhea due to sahra Musculoskeletal History: Reports: Arthritis, Other (See Below) Other Musculoskeletal History: arthritis - knees, feet, 2 lumbar discs - degenerative joint disease Neurological History: Reports: Neuropathy, Diabetic, Neuropathy, Peripheral, Other (See Below) Endocrine/Metabolic History: Reports: Diabetes, Type II, Other (See Below) Other Endocrine/Metabolic History: thyroid gland enlarged on carotid CT angiogram, dx with NIDDM - 7 or 8 years ago, A1C 6 mo ago 5.4 Oncologic (Cancer) History: Reports: Basal Cell Carcinoma Other Oncologic History: removed from left shoulder Dermatologic History: Reports: Venous Stasis Dermatitis, Other (See Below) Other Dermatologic History: carcinoma on left shoulder removed several years ago - Infectious Disease History Infectious Disease History: Reports: Chicken Pox, Measles - Past Surgical History HEENT Surgical History: Reports: Tonsillectomy Cardiovascular Surgical History: Reports: Percutaneous Transluminal Angioplasty Other Cardiovascular Surgeries/Procedures: PCTA 01/02/17, carotid CT angiogram - less than 50% blockage on right, 55% stenosis on left GI Surgical History: Reports: Appendectomy, Cholecystectomy Other GI Surgeries/Procedures: 07/31/16 - sahra Musculoskeletal Surgical History: Reports: Other (See Below) Other Musculoskeletal Surgeries/Procedures:: amputation of all toes of the left foot related to osteomyelitis Social & Family History - Family History Neurological: Reports: Alzheimers Disease - Tobacco Use Smoking Status *Q: Never Smoker Second Hand Smoke Exposure: No - Caffeine Use Caffeine Use: Reports: Coffee Other Caffeine Use: 2 cups QAM - Recreational Drug Use Recreational Drug Use: No H&P Review of Systems - Review of Systems: Review Of Systems: See Below General: Reports: No Symptoms HEENT: Reports: No Symptoms Pulmonary: Reports: No Symptoms Cardiovascular: Reports: No Symptoms Gastrointestinal: Reports: No Symptoms Genitourinary: Reports: No Symptoms Musculoskeletal: Reports: Other (See history of present illness) Skin: Reports: No Symptoms Psychiatric: Reports: No Symptoms Neurological: Reports: No Symptoms Hematologic/Lymphatic: Reports: No Symptoms Immunologic: Reports: No Symptoms Exam - Exam Exam: See Below - Vital Signs Vital Signs: Last Vital Signs Temp 98.1 F 01/04/17 11:27 Pulse 58 L 01/04/17 11:27 Resp 18 01/04/17 11:27 BP 140/66 01/04/17 11:27 Pulse Ox 98 01/04/17 11:27 Weight: 260 lb 14.4 oz - Exam General: Alert, Oriented, Cooperative HEENT: PERRLA, Hearing Intact, Posterior Pharynx Clear, TMs Clear Neck: Supple, Trachea Midline Lungs: Clear to Auscultation, Normal Respiratory Effort Cardiovascular: Regular Rate, Regular Rhythm, Normal S1, Normal S2. No: Systolic Murmur, Diastolic Murmur Abdomen: Normal Bowel Sounds, Soft. No: Organomegaly, Peritoneal Signs, Distention, Guarding Extremities: Other (Left foot is wrapped. I did not unwrap it today to inspect his foot because he just came back from [facility].) Neurological: Normal Tone Neuro Extensive - Mental Status: Alert, Oriented x3, Normal Mood/Affect, Normal Cognition Psychiatric: Alert, Normal Affect, Normal Mood *Q Meaningful Use (ADM) - VTE *Q VTE Criteria *Q: - Stroke *Q Stroke Criteria *Q: - AMI *Q AMI Criteria *Q: Problem List Initiated/Reviewed/Updated: Yes Orders Last 24hrs: Active Orders 24 hr Category Date Time Status Admission Status [Patient Status] [ADT] Routine ADT 01/04/17 10:21 Active Patient Status [ADT] Routine ADT 01/04/17 12:53 Active Blood Glucose Check, Bedside [RC] DAILY Care 01/04/17 12:53 Active Communication Order [RC] ASDIRECTED Care 01/04/17 16:23 Active Dressing Change [Wound Care] [RC] DAILY Care 01/04/17 14:34 Active May Shower [RC] ASDIRECTED Care 01/04/17 12:53 Active Oxygen Therapy [RC] PRN Care 01/04/17 12:53 Active Up ad Glory [RC] ASDIRECTED Care 01/04/17 12:53 Active VTE/DVT Education [RC] Per Unit Routine Care 01/04/17 12:53 Active Vital Signs [RC] PER UNIT ROUTINE Care 01/04/17 12:53 Active PT Evaluation and Treatment [CONS] Routine Cons 01/04/17 14:36 Active Consistent Carbohydrate Diet [DIET] Diet 01/04/17 Lunch Active C-REACTIVE PROTEIN [CHEM] Routine Lab 01/11/17 06:00 Ordered CBC WITH AUTO DIFF [HEME] Routine Lab 01/11/17 06:00 Ordered CREATININE W/GFR [CHEM] Routine Lab 01/11/17 06:00 Ordered ESR [SEDIMENTATION RATE MANUAL] [HEME] Routine Lab 01/11/17 06:00 Ordered Acetaminophen/HYDROcodone [[place] 325-5 MG] Med 01/04/17 12:57 Active 1 tab PO Q4H PRN Clopidogrel [Plavix] Med 01/05/17 09:00 Active 75 mg PO DAILY Diclofenac Sodium [Voltaren 1% Gel] Med 01/04/17 13:00 Active 4 gm TOP QID Metoprolol Succinate [Toprol XL] Med 01/05/17 09:00 Active 12.5 mg PO DAILY Piperacillin/Tazobactam [Zosyn] 4.5 gm Med 01/04/17 12:00 Active Sodium Chloride 0.9% [Normal Saline] 100 ml IV Q8H Sodium Chloride 0.9% [Saline Flush] Med 01/04/17 20:00 Active 10 ml FLUSH Q8H Sodium Chloride 0.9% [Saline Flush] Med 01/04/17 20:30 Active 10 ml FLUSH Q8H metFORMIN [Glucophage] Med 01/04/17 18:00 Active 500 mg PO BIDMEALS Resuscitation Status Routine Resus Stat 01/04/17 12:53 Ordered Medication Orders Hydrocodone Bitart/Acetaminophen ([place] 325-5 Mg) 1 tab PO Q4H PRN PRN Reason: Pain Last Admin: 01/04/17 16:05 Dose: 1 tab Clopidogrel Bisulfate (Plavix) 75 mg PO DAILY [facility] Diclofenac Sodium (Voltaren 1% Gel) 4 gm TOP QID [facility] Last Admin: 01/04/17 17:44 Dose: 4 gm Admin: 01/04/17 13:31 Dose: 4 gm Piperacillin Sod/Tazobactam (Sod 4.5 gm/ Sodium Chloride) 100 mls @ 200 mls/hr IV Q8H [facility] Stop: 02/06/17 20:30 Last Admin: 01/04/17 12:43 Dose: 200 mls/hr Metformin HCl (Glucophage) 500 mg PO BIDMEALS [facility] Last Admin: 01/04/17 17:58 Dose: Not Given Metoprolol Succinate (Toprol Xl) 12.5 mg PO DAILY [facility] Sodium Chloride (Saline Flush) 10 ml FLUSH Q8H [facility] Sodium Chloride (Saline Flush) 10 ml FLUSH Q8H [facility] Assessment/Plan Comment:: Assessment/plan Osteomyelitis-IV antibiotics. See orders. Status post amputation left toes. Nonweightbearing for the next couple weeks then ambulation. Peripheral vascular disease-continue current care. Diabetes-diabetic diet, check insulin plus meds.
[2017-01-04] MEDS: Sodium Chloride 0.9% 10 ML Syringe FLUSH SCH (20:03)
[2017-01-05] MEDS: Acetaminophen/HYDROcodone 325-5 MG Tab PO PRN ×6 (00:45→22:07)
[2017-01-05] MEDS: Piperacillin/Tazobactam 4.5 GM in Sodium Chloride 0.9% 100 ML IV SCH ×3 (04:08→20:14)
[2017-01-05] MEDS: Sodium Chloride 0.9% 10 ML Syringe FLUSH SCH ×7 (04:57→21:09)
[2017-01-05] MEDS: metFORMIN 500 MG Tab PO SCH ×2 (08:20→18:35)
[2017-01-05] MEDS: Clopidogrel 75 MG Tab PO SCH (08:21)
[2017-01-05] MEDS: Metoprolol Succinate 25 MG Tab.ER PO SCH (08:21)
[2017-01-05] MEDS: Diclofenac Sodium 1% Gel 100 GM Tube TOP SCH ×4 (08:21→20:19)
[2017-01-06] MEDS: Acetaminophen/HYDROcodone 325-5 MG Tab PO PRN ×6 (01:59→23:16)
[2017-01-06] MEDS: Sodium Chloride 0.9% 10 ML Syringe FLUSH SCH ×6 (04:04→21:03)
[2017-01-06] MEDS: Piperacillin/Tazobactam 4.5 GM in Sodium Chloride 0.9% 100 ML IV SCH ×3 (04:08→20:02)
[2017-01-06] MEDS: Metoprolol Succinate 25 MG Tab.ER PO SCH (08:58)
[2017-01-06] MEDS: Clopidogrel 75 MG Tab PO SCH (08:59)
[2017-01-06] MEDS: metFORMIN 500 MG Tab PO SCH ×2 (08:59→17:23)
[2017-01-06] MEDS: Diclofenac Sodium 1% Gel 100 GM Tube TOP SCH ×4 (08:59→21:52)
[2017-01-06] MEDS: Sodium Chloride 0.9% 250 ML IV SCH (11:40)
[2017-01-07] MEDS: Sodium Chloride 0.9% 10 ML Syringe FLUSH SCH ×6 (03:37→21:06)
[2017-01-07] MEDS: Piperacillin/Tazobactam 4.5 GM in Sodium Chloride 0.9% 100 ML IV SCH ×3 (03:38→20:08)
[2017-01-07] MEDS: Acetaminophen/HYDROcodone 325-5 MG Tab PO PRN ×4 (03:38→22:50)
[2017-01-07] MEDS: metFORMIN 500 MG Tab PO SCH ×2 (08:47→18:30)
[2017-01-07] MEDS: Clopidogrel 75 MG Tab PO SCH (08:47)
[2017-01-07] MEDS: Metoprolol Succinate 25 MG Tab.ER PO SCH (08:47)
[2017-01-07] MEDS: Diclofenac Sodium 1% Gel 100 GM Tube TOP SCH ×4 (08:49→21:26)
[2017-01-07] MEDS: Sodium Chloride 0.9% 250 ML IV SCH (11:55)
[2017-01-08] MEDS: Acetaminophen/HYDROcodone 325-5 MG Tab PO PRN ×2 (03:56→22:02)
[2017-01-08] MEDS: Sodium Chloride 0.9% 10 ML Syringe FLUSH SCH ×6 (03:56→21:31)
[2017-01-08] MEDS: Piperacillin/Tazobactam 4.5 GM in Sodium Chloride 0.9% 100 ML IV SCH ×3 (03:57→20:40)
[2017-01-08] MEDS: metFORMIN 500 MG Tab PO SCH ×2 (09:17→17:29)
[2017-01-08] MEDS: Metoprolol Succinate 25 MG Tab.ER PO SCH (09:17)
[2017-01-08] MEDS: Diclofenac Sodium 1% Gel 100 GM Tube TOP SCH ×4 (09:18→20:36)
[2017-01-08] MEDS: Clopidogrel 75 MG Tab PO SCH (09:18)
[2017-01-08] MEDS: Sodium Chloride 0.9% 250 ML IV SCH ×2 (12:22→20:35)
[2017-01-09] MEDS: Sodium Chloride 0.9% 10 ML Syringe FLUSH SCH ×6 (03:56→20:18)
[2017-01-09] MEDS: Piperacillin/Tazobactam 4.5 GM in Sodium Chloride 0.9% 100 ML IV SCH ×3 (03:59→19:35)
[2017-01-09] MEDS: Acetaminophen/HYDROcodone 325-5 MG Tab PO PRN ×2 (04:48→20:18)
[2017-01-09] MEDS: Metoprolol Succinate 25 MG Tab.ER PO SCH (09:14)
[2017-01-09] MEDS: Diclofenac Sodium 1% Gel 100 GM Tube TOP SCH ×4 (09:15→20:19)
[2017-01-09] MEDS: metFORMIN 500 MG Tab PO SCH ×2 (09:15→17:11)
[2017-01-09] MEDS: Clopidogrel 75 MG Tab PO SCH (09:15)
[2017-01-09] MEDS: Sodium Chloride 0.9% 250 ML IV SCH (11:50)
[2017-01-10] MEDS: Piperacillin/Tazobactam 4.5 GM in Sodium Chloride 0.9% 100 ML IV SCH ×3 (04:24→20:05)
[2017-01-10] MEDS: Sodium Chloride 0.9% 10 ML Syringe FLUSH SCH ×6 (04:24→20:09)
[2017-01-10] MEDS: Acetaminophen/HYDROcodone 325-5 MG Tab PO PRN ×3 (04:45→20:12)
[2017-01-10] MEDS: Clopidogrel 75 MG Tab PO SCH (09:18)
[2017-01-10] MEDS: Diclofenac Sodium 1% Gel 100 GM Tube TOP SCH ×4 (09:18→20:09)
[2017-01-10] MEDS: Metoprolol Succinate 25 MG Tab.ER PO SCH (09:18)
[2017-01-10] MEDS: metFORMIN 500 MG Tab PO SCH ×2 (09:18→17:17)
[2017-01-10] MEDS: Sodium Chloride 0.9% 250 ML IV SCH ×2 (12:38→20:07)
[2017-01-11] MEDS: Sodium Chloride 0.9% 10 ML Syringe FLUSH SCH ×6 (04:29→20:30)
[2017-01-11] MEDS: Piperacillin/Tazobactam 4.5 GM in Sodium Chloride 0.9% 100 ML IV SCH ×3 (04:30→19:45)
[2017-01-11] MEDS: metFORMIN 500 MG Tab PO SCH ×2 (07:46→18:08)
[2017-01-11] MEDS: Clopidogrel 75 MG Tab PO SCH (08:26)
[2017-01-11] MEDS: Acetaminophen/HYDROcodone 325-5 MG Tab PO PRN ×2 (08:27→21:12)
[2017-01-11] MEDS: Metoprolol Succinate 25 MG Tab.ER PO SCH (08:27)
[2017-01-11] MEDS: Sodium Chloride 0.9% 250 ML IV SCH (12:25)
[2017-01-11] MEDS: Diclofenac Sodium 1% Gel 100 GM Tube TOP SCH ×4 (13:28→20:30)
[2017-01-12] MEDS: Piperacillin/Tazobactam 4.5 GM in Sodium Chloride 0.9% 100 ML IV SCH ×3 (03:36→20:05)
[2017-01-12] MEDS: Sodium Chloride 0.9% 10 ML Syringe FLUSH SCH ×6 (03:36→20:08)
[2017-01-12] MEDS: Acetaminophen/HYDROcodone 325-5 MG Tab PO PRN ×3 (04:16→20:07)
[2017-01-12] MEDS: Clopidogrel 75 MG Tab PO SCH (08:28)
[2017-01-12] MEDS: metFORMIN 500 MG Tab PO SCH ×2 (08:28→17:12)
[2017-01-12] MEDS: Metoprolol Succinate 25 MG Tab.ER PO SCH (08:29)
[2017-01-12] MEDS: Diclofenac Sodium 1% Gel 100 GM Tube TOP SCH ×4 (08:30→20:06)
--- NOTE | 2017-01-12 10:35 | PCM.PN ---
- General Info Date of Service: 01/12/17 Admission Dx/Problem (Free Text): Patient is without complaints. He denies any foot pain. He thinks the wound is draining a little. He denies chest pain, shortness of breath. Blood sugars in the low 100s. - Patient Data Vitals - most recent: Last Vital Signs Temp 97.7 F 01/12/17 08:00 Pulse 67 01/12/17 08:29 Resp 18 01/12/17 08:00 BP 132/75 01/12/17 08:29 Pulse Ox 97 01/12/17 08:00 Weight - most recent: 255 lb 1.6 oz I&O - last 24 hours: Intake & Output 01/11/17 01/12/17 01/12/17 22:59 06:59 14:59 Intake Total 130 130 Balance 130 130 Lab Results last 24 hrs: Laboratory Results - last 24 hr 01/11/17 01/11/17 01/12/17 Range/Units 12:22 12:22 06:02 WBC 8.0 (4.5-12.0) X10-3/uL RBC 4.70 (4.30-5.75) x10(6)uL Hgb 11.8 (11.5-15.5) g/dL Hct 36.3 (30.0-51.3) % MCV 77.3 L (80-96) fL MCH 25.1 L (27.7-33.6) pg MCHC 32.4 (32.2-35.4) g/dL RDW 15.3 (11.5-15.5) % Plt Count 381 H (125-369) X10(3)uL MPV 7.2 L (7.4-10.4) fL Neut % (Auto) 55.1 (46-82) % Lymph % (Auto) 33.5 (13-37) % [place] % (Auto) 8.5 (4-12) % Eos % (Auto) 2 (1.0-5.0) % Baso % (Auto) 1 (0-2) % Neut # (Auto) 4.3 (1.6-8.3) # Lymph # (Auto) 2.7 (0.6-5.0) # [place] # (Auto) 0.7 (0.0-1.3) # Eos # (Auto) 0.2 (0.0-0.8) # Baso # (Auto) 0.0 (0.0-0.2) # ESR 52 H (0-15) mm/hr Creatinine 0.8 (0.6-1.3) mg/dL Est Cr Clr Drug Dosing 92.96 mL/min Estimated GFR (MDRD) > 60 (>60) POC Glucose 103 (80-116) mg/dL C-Reactive Protein 1.0 (0.0-1.0) mg/dL Med Orders - Current: Current Medications Hydrocodone Bitart/Acetaminophen ([place] 325-5 Mg) 1 tab PO Q4H PRN PRN Reason: Pain Last Admin: 01/12/17 08:32 Dose: 1 tab Clopidogrel Bisulfate (Plavix) 75 mg PO DAILY [facility] Last Admin: 01/12/17 08:28 Dose: 75 mg Diclofenac Sodium (Voltaren 1% Gel) 4 gm TOP QID [facility] Last Admin: 01/12/17 08:30 Dose: 4 gm Piperacillin Sod/Tazobactam (Sod 4.5 gm/ Sodium Chloride) 100 mls @ 200 mls/hr IV Q8H [facility] Stop: 02/06/17 20:30 Last Admin: 01/12/17 03:36 Dose: 200 mls/hr Sodium Chloride (Normal Saline) 250 mls @ 100 mls/hr IV ASDIRECTED [facility] Last Admin: 01/11/17 12:25 Dose: 100 mls/hr Metformin HCl (Glucophage) 500 mg PO BIDMEALS [facility] Last Admin: 01/12/17 08:28 Dose: 500 mg Metoprolol Succinate (Toprol Xl) 12.5 mg PO DAILY [facility] Last Admin: 01/12/17 08:29 Dose: 12.5 mg Sodium Chloride (Saline Flush) 10 ml FLUSH Q8H [facility] Last Admin: 01/12/17 03:36 Dose: 10 ml Sodium Chloride (Saline Flush) 10 ml FLUSH Q8H [facility] Last Admin: 01/12/17 04:25 Dose: 10 ml Discontinued Medications Heparin Sodium (Porcine) (Heparin Lock Flush 100 Units/Ml Syringe) 300 units FLUSH Q8H [facility] Stop: 02/06/17 20:30 Last Admin: 01/04/17 13:28 Dose: 300 units - Exam General: alert, oriented Lungs: Clear to auscultation, Normal respiratory effort Cardiovascular: Regular Rate, Regular Rhythm, No Murmurs Extremities: other (Left foot wound without drainage, erythema. Maria Esther intact. Skin on the foot is a little dusky and no erythema.) - Problem List & Annotations (1) Amputation, traumatic, toes SNOMED Code(s): 67266761 Code(s): S98.139A - COMPLETE TRAUMATIC AMPUTATION OF ONE UNSP LESSER TOE, INIT Status: Acute Current Visit: Yes (2) Osteomyelitis SNOMED Code(s): 29554075 Code(s): M86.9 - OSTEOMYELITIS, UNSPECIFIED Status: Acute Current Visit: Yes - Problem List Review Problem List Initiated/Reviewed/Updated: Yes - Plan Plan:: Continue current care.
[2017-01-12] MEDS: Sodium Chloride 0.9% 250 ML IV SCH (11:26)
[2017-01-13] MEDS: Piperacillin/Tazobactam 4.5 GM in Sodium Chloride 0.9% 100 ML IV SCH ×3 (04:18→19:44)
[2017-01-13] MEDS: Sodium Chloride 0.9% 10 ML Syringe FLUSH SCH ×4 (04:19→20:16)
[2017-01-13] MEDS: metFORMIN 500 MG Tab PO SCH ×2 (09:05→18:31)
[2017-01-13] MEDS: Metoprolol Succinate 25 MG Tab.ER PO SCH (09:05)
[2017-01-13] MEDS: Clopidogrel 75 MG Tab PO SCH (09:05)
[2017-01-13] MEDS: Diclofenac Sodium 1% Gel 100 GM Tube TOP SCH ×4 (09:06→20:40)
[2017-01-13] MEDS: Acetaminophen/HYDROcodone 325-5 MG Tab PO PRN ×3 (09:10→20:06)
[2017-01-13] MEDS: Sodium Chloride 0.9% 250 ML IV SCH (13:00)
[2017-01-14] MEDS: Piperacillin/Tazobactam 4.5 GM in Sodium Chloride 0.9% 100 ML IV SCH ×3 (03:40→20:21)
[2017-01-14] MEDS: Acetaminophen/HYDROcodone 325-5 MG Tab PO PRN ×3 (04:29→21:24)
[2017-01-14] MEDS: Sodium Chloride 0.9% 10 ML Syringe FLUSH SCH ×4 (04:29→20:21)
[2017-01-14] MEDS: metFORMIN 500 MG Tab PO SCH ×2 (07:23→18:21)
[2017-01-14] MEDS: Clopidogrel 75 MG Tab PO SCH (08:20)
[2017-01-14] MEDS: Metoprolol Succinate 25 MG Tab.ER PO SCH (08:20)
[2017-01-14] MEDS: Diclofenac Sodium 1% Gel 100 GM Tube TOP SCH ×4 (09:30→20:20)
[2017-01-14] MEDS: Sodium Chloride 0.9% 10 ML Syringe FLUSH PRN (12:12)
[2017-01-14] MEDS: Sodium Chloride 0.9% 250 ML IV SCH (12:12)
[2017-01-15] MEDS: Piperacillin/Tazobactam 4.5 GM in Sodium Chloride 0.9% 100 ML IV SCH ×3 (03:39→20:29)
[2017-01-15] MEDS: Sodium Chloride 0.9% 10 ML Syringe FLUSH SCH ×3 (04:30→20:30)
[2017-01-15] MEDS: Acetaminophen/HYDROcodone 325-5 MG Tab PO PRN ×4 (04:33→22:17)
[2017-01-15] MEDS: Metoprolol Succinate 25 MG Tab.ER PO SCH (08:04)
[2017-01-15] MEDS: Clopidogrel 75 MG Tab PO SCH (08:04)
[2017-01-15] MEDS: metFORMIN 500 MG Tab PO SCH ×2 (08:04→17:00)
[2017-01-15] MEDS: Diclofenac Sodium 1% Gel 100 GM Tube TOP SCH ×4 (08:05→20:30)
[2017-01-15] MEDS: Sodium Chloride 0.9% 10 ML Syringe FLUSH PRN (12:22)
[2017-01-15] MEDS: Sodium Chloride 0.9% 250 ML IV SCH (12:23)
[2017-01-16] MEDS: Piperacillin/Tazobactam 4.5 GM in Sodium Chloride 0.9% 100 ML IV SCH ×3 (03:38→20:29)
[2017-01-16] MEDS: Acetaminophen/HYDROcodone 325-5 MG Tab PO PRN ×4 (03:45→21:30)
[2017-01-16] MEDS: Sodium Chloride 0.9% 10 ML Syringe FLUSH SCH ×3 (04:37→20:39)
--- NOTE | 2017-01-16 07:43 | PCM.PN ---
- General Info Date of Service: 01/16/17 Admission Dx/Problem (Free Text): Patient without complaints. Foot doing well according to the patient. No drainage. No fevers. - Patient Data Vitals - most recent: Last Vital Signs Temp 97.4 F 01/15/17 07:25 Pulse 61 01/15/17 08:04 Resp 20 01/15/17 07:25 BP 131/75 01/15/17 08:04 Pulse Ox 98 01/15/17 07:25 Weight - most recent: 255 lb 1.6 oz Med Orders - Current: Current Medications Hydrocodone Bitart/Acetaminophen ([place] 325-5 Mg) 1 tab PO Q4H PRN PRN Reason: Pain Last Admin: 01/16/17 03:45 Dose: 1 tab Clopidogrel Bisulfate (Plavix) 75 mg PO DAILY [facility] Last Admin: 01/15/17 08:04 Dose: 75 mg Diclofenac Sodium (Voltaren 1% Gel) 4 gm TOP QID [facility] Last Admin: 01/15/17 20:30 Dose: 4 gm Piperacillin Sod/Tazobactam (Sod 4.5 gm/ Sodium Chloride) 100 mls @ 200 mls/hr IV Q8H [facility] Stop: 02/06/17 20:30 Last Admin: 01/16/17 03:38 Dose: 200 mls/hr Sodium Chloride (Normal Saline) 250 mls @ 100 mls/hr IV ASDIRECTED [facility] Last Admin: 01/15/17 12:23 Dose: 100 mls/hr Metformin HCl (Glucophage) 500 mg PO BIDMEALS [facility] Last Admin: 01/15/17 17:00 Dose: 500 mg Metoprolol Succinate (Toprol Xl) 12.5 mg PO DAILY [facility] Last Admin: 01/15/17 08:04 Dose: 12.5 mg Sodium Chloride (Saline Flush) 10 ml FLUSH Q8H [facility] Last Admin: 01/16/17 04:37 Dose: 10 ml Sodium Chloride (Saline Flush) 10 ml FLUSH ASDIRECTED PRN PRN Reason: FLUSH Last Admin: 01/15/17 12:22 Dose: 10 ml Discontinued Medications Heparin Sodium (Porcine) (Heparin Lock Flush 100 Units/Ml Syringe) 300 units FLUSH Q8H [facility] Stop: 02/06/17 20:30 Last Admin: 01/04/17 13:28 Dose: 300 units Sodium Chloride (Saline Flush) 10 ml FLUSH Q8H [facility] Last Admin: 01/13/17 04:19 Dose: 10 ml - Exam General: alert, oriented Peripheral Pulses: 1+: Dorsalis Pedis (L) Skin: warm, dry, intact, other (Wound is healing nicely left foot) - Problem List & Annotations (1) Amputation, traumatic, toes SNOMED Code(s): 51765587 Code(s): S98.139A - COMPLETE TRAUMATIC AMPUTATION OF ONE UNSP LESSER TOE, INIT Status: Acute Current Visit: Yes (2) Osteomyelitis SNOMED Code(s): 68158881 Code(s): M86.9 - OSTEOMYELITIS, UNSPECIFIED Status: Acute Current Visit: Yes - Problem List Review Problem List Initiated/Reviewed/Updated: Yes - Plan Plan:: Continue current care. Patient has an appointment with infectious disease today.
[2017-01-16] MEDS: metFORMIN 500 MG Tab PO SCH ×2 (07:51→18:18)
[2017-01-16] MEDS: Clopidogrel 75 MG Tab PO SCH (08:02)
[2017-01-16] MEDS: Metoprolol Succinate 25 MG Tab.ER PO SCH (08:02)
[2017-01-16] MEDS: Diclofenac Sodium 1% Gel 100 GM Tube TOP SCH ×3 (08:04→17:00)
[2017-01-16] MEDS: Sodium Chloride 0.9% 250 ML IV SCH (11:30)
[2017-01-17] MEDS: Diclofenac Sodium 1% Gel 100 GM Tube TOP SCH ×5 (00:06→20:26)
[2017-01-17] MEDS: Piperacillin/Tazobactam 4.5 GM in Sodium Chloride 0.9% 100 ML IV SCH ×3 (04:16→20:25)
[2017-01-17] MEDS: Sodium Chloride 0.9% 10 ML Syringe FLUSH SCH ×3 (04:20→20:25)
[2017-01-17] MEDS: Acetaminophen/HYDROcodone 325-5 MG Tab PO PRN ×3 (04:23→20:26)
[2017-01-17] MEDS: metFORMIN 500 MG Tab PO SCH ×2 (08:40→18:14)
[2017-01-17] MEDS: Clopidogrel 75 MG Tab PO SCH (08:40)
[2017-01-17] MEDS: Metoprolol Succinate 25 MG Tab.ER PO SCH (08:41)
[2017-01-17] MEDS: Sodium Chloride 0.9% 250 ML IV SCH (12:05)
[2017-01-18] MEDS: Piperacillin/Tazobactam 4.5 GM in Sodium Chloride 0.9% 100 ML IV SCH ×3 (04:01→19:57)
[2017-01-18] MEDS: Sodium Chloride 0.9% 10 ML Syringe FLUSH SCH ×3 (04:53→20:52)
[2017-01-18] MEDS: Acetaminophen/HYDROcodone 325-5 MG Tab PO PRN ×3 (04:56→20:01)
[2017-01-18] MEDS: Clopidogrel 75 MG Tab PO SCH (09:06)
[2017-01-18] MEDS: Metoprolol Succinate 25 MG Tab.ER PO SCH (09:06)
[2017-01-18] MEDS: metFORMIN 500 MG Tab PO SCH ×2 (09:06→20:27)
[2017-01-18] MEDS: Diclofenac Sodium 1% Gel 100 GM Tube TOP SCH ×4 (09:07→20:29)
[2017-01-18] MEDS: Sodium Chloride 0.9% 10 ML Syringe FLUSH PRN (12:55)
[2017-01-18] MEDS: Sodium Chloride 0.9% 250 ML IV SCH (12:55)
[2017-01-19] MEDS: Diclofenac Sodium 1% Gel 100 GM Tube TOP SCH ×5 (03:31→22:18)
[2017-01-19] MEDS: Piperacillin/Tazobactam 4.5 GM in Sodium Chloride 0.9% 100 ML IV SCH ×3 (03:54→20:35)
[2017-01-19] MEDS: Sodium Chloride 0.9% 10 ML Syringe FLUSH SCH ×3 (03:54→21:35)
[2017-01-19] MEDS: Sodium Chloride 0.9% 10 ML Syringe FLUSH PRN (04:35)
[2017-01-19] MEDS: Acetaminophen/HYDROcodone 325-5 MG Tab PO PRN ×2 (04:41→18:55)
[2017-01-19] MEDS: Metoprolol Succinate 25 MG Tab.ER PO SCH (08:11)
[2017-01-19] MEDS: Clopidogrel 75 MG Tab PO SCH (08:11)
[2017-01-19] MEDS: metFORMIN 500 MG Tab PO SCH ×2 (08:11→18:30)
--- NOTE | 2017-01-19 15:36 | PN ---
DATE SEEN: 01/19/2017 SUBJECTIVE: Dorian Palomo is a 71-year-old male, who is presently undergoing IV therapy for complicated osteomyelitis. He lost the distal portion of his left foot. Pain in his foot is absent. Back pain intervention. Dr. Valentino in Infectious Disease under present care. Presently on piperacillin/tazobactam 0.5 g q.8 hours. LABORATORY STUDIES: Accu-Cheks 116, 120, 93, 91 and 100. OBJECTIVE: VITAL SIGNS: Blood pressure 116/57, mean blood pressure 76, pulse 65, temperature 36.8, 16 is the respirations, 02 saturations 97%. GENERAL: In good spirits. No particular complaints. CHEST: Clear. HEART: Regular. ABDOMEN: Benign. EXTREMITIES: Dressing in place, left lower foot. ASSESSMENT: Osteomyelitis, forefoot amputation. PLAN: Recommendations, care, and treatment presently in place, the patient in agreement, IV antibiotics until 02/06/2017. /[id number] [place]/MARIAN
[2017-01-20] MEDS: Acetaminophen/HYDROcodone 325-5 MG Tab PO PRN ×4 (03:11→21:26)
[2017-01-20] MEDS: Piperacillin/Tazobactam 4.5 GM in Sodium Chloride 0.9% 100 ML IV SCH ×3 (03:13→19:59)
[2017-01-20] MEDS: Sodium Chloride 0.9% 10 ML Syringe FLUSH SCH ×3 (04:00→20:00)
[2017-01-20] MEDS: metFORMIN 500 MG Tab PO SCH ×2 (08:06→19:54)
[2017-01-20] MEDS: Metoprolol Succinate 25 MG Tab.ER PO SCH (08:06)
[2017-01-20] MEDS: Clopidogrel 75 MG Tab PO SCH (08:06)
[2017-01-20] MEDS: Diclofenac Sodium 1% Gel 100 GM Tube TOP SCH ×4 (10:20→20:56)
[2017-01-20] MEDS: Sodium Chloride 0.9% 10 ML Syringe FLUSH PRN ×2 (12:12→20:57)
--- NOTE | 2017-01-20 12:14 | PN ---
DATE SEEN: 01/20/2017 SUBJECTIVE: Dorian Palomo is a 71-year-old male, seen today for review. Complicated forefoot fracture left foot, osteomyelitis. Antibiotic therapy planned until February 06. Doing well. Back pain, primary concern. OBJECTIVE: Extremity was dressed without complaint. Nursing staff states doing well. Postoperative, forefoot removal, left foot osteomyelitis. PLAN: Continue medications and care. Analgesics as appropriate. /[id number] [place]/MARIAN
[2017-01-20] MEDS: Sodium Chloride 0.9% 250 ML IV SCH (20:00)
[2017-01-21] MEDS: Acetaminophen/HYDROcodone 325-5 MG Tab PO PRN ×2 (01:56→20:06)
[2017-01-21] MEDS: Sodium Chloride 0.9% 10 ML Syringe FLUSH SCH ×3 (03:54→20:08)
[2017-01-21] MEDS: Piperacillin/Tazobactam 4.5 GM in Sodium Chloride 0.9% 100 ML IV SCH ×3 (03:54→20:07)
[2017-01-21] MEDS: Sodium Chloride 0.9% 10 ML Syringe FLUSH PRN ×3 (04:44→21:04)
[2017-01-21] MEDS: Metoprolol Succinate 25 MG Tab.ER PO SCH (08:32)
[2017-01-21] MEDS: Clopidogrel 75 MG Tab PO SCH (08:32)
[2017-01-21] MEDS: metFORMIN 500 MG Tab PO SCH ×2 (08:32→18:17)
[2017-01-21] MEDS: Diclofenac Sodium 1% Gel 100 GM Tube TOP SCH ×4 (10:54→21:03)
[2017-01-21] MEDS: Sodium Chloride 0.9% 250 ML IV SCH (20:08)
[2017-01-22] MEDS: Acetaminophen/HYDROcodone 325-5 MG Tab PO PRN ×6 (00:08→22:27)
[2017-01-22] MEDS: Piperacillin/Tazobactam 4.5 GM in Sodium Chloride 0.9% 100 ML IV SCH ×3 (04:02→19:47)
[2017-01-22] MEDS: Sodium Chloride 0.9% 10 ML Syringe FLUSH SCH ×3 (04:03→20:25)
[2017-01-22] MEDS: Sodium Chloride 0.9% 10 ML Syringe FLUSH PRN (04:53)
[2017-01-22] MEDS: Clopidogrel 75 MG Tab PO SCH (08:55)
[2017-01-22] MEDS: Metoprolol Succinate 25 MG Tab.ER PO SCH (08:55)
[2017-01-22] MEDS: metFORMIN 500 MG Tab PO SCH ×2 (08:55→17:58)
[2017-01-22] MEDS: Diclofenac Sodium 1% Gel 100 GM Tube TOP SCH ×4 (10:12→20:26)
[2017-01-23] MEDS: Acetaminophen/HYDROcodone 325-5 MG Tab PO PRN ×3 (04:09→21:39)
[2017-01-23] MEDS: Piperacillin/Tazobactam 4.5 GM in Sodium Chloride 0.9% 100 ML IV SCH ×3 (04:10→20:09)
[2017-01-23] MEDS: Sodium Chloride 0.9% 10 ML Syringe FLUSH SCH ×3 (05:06→20:09)
--- NOTE | 2017-01-23 07:57 | PCM.PN ---
- General Info Date of Service: 01/23/17 Admission Dx/Problem (Free Text): Patient without complaints. Still not weightbearing on the left foot. He saw the infectious disease doctor and everything is going well. He has appointment with podiatry tomorrow in regards to removing his christina and bearing weight. He continues IV antibiotics and is tolerating it. Denies fevers or chills or left foot pain. - Patient Data Vitals - most recent: Last Vital Signs Temp 97.6 F 01/22/17 08:00 Pulse 56 L 01/22/17 08:55 Resp 18 01/22/17 08:00 BP 131/74 01/22/17 08:55 Pulse Ox 96 01/22/17 08:00 Weight - most recent: 255 lb 1.6 oz I&O - last 24 hours: Intake & Output 01/22/17 01/23/17 01/23/17 22:59 06:59 14:59 Intake Total 130 130 Output Total 300 1000 500 Balance -170 -870 -500 Lab Results last 24 hrs: Laboratory Results - last 24 hr 01/23/17 Range/Units 06:18 POC Glucose 142 H (80-116) mg/dL Med Orders - Current: Current Medications Hydrocodone Bitart/Acetaminophen ([place] 325-5 Mg) 1 tab PO Q4H PRN PRN Reason: Pain Last Admin: 01/23/17 04:09 Dose: 1 tab Clopidogrel Bisulfate (Plavix) 75 mg PO DAILY [facility] Last Admin: 01/22/17 08:55 Dose: 75 mg Diclofenac Sodium (Voltaren 1% Gel) 4 gm TOP QID [facility] Last Admin: 01/22/17 20:26 Dose: Not Given Piperacillin Sod/Tazobactam (Sod 4.5 gm/ Sodium Chloride) 100 mls @ 200 mls/hr IV Q8H [facility] Stop: 02/06/17 20:30 Last Admin: 01/23/17 04:10 Dose: 200 mls/hr Sodium Chloride (Normal Saline) 250 mls @ 100 mls/hr IV ASDIRECTED [facility] Last Admin: 01/21/17 20:08 Dose: 100 mls/hr Metformin HCl (Glucophage) 500 mg PO BIDMEALS [facility] Last Admin: 01/22/17 17:58 Dose: 500 mg Metoprolol Succinate (Toprol Xl) 12.5 mg PO DAILY [facility] Last Admin: 01/22/17 08:55 Dose: 12.5 mg Sodium Chloride (Saline Flush) 10 ml FLUSH Q8H [facility] Last Admin: 01/23/17 05:06 Dose: 10 ml Sodium Chloride (Saline Flush) 10 ml FLUSH ASDIRECTED PRN PRN Reason: FLUSH Last Admin: 01/22/17 04:53 Dose: 10 ml Discontinued Medications Heparin Sodium (Porcine) (Heparin Lock Flush 100 Units/Ml Syringe) 300 units FLUSH Q8H [facility] Stop: 02/06/17 20:30 Last Admin: 01/04/17 13:28 Dose: 300 units Sodium Chloride (Saline Flush) 10 ml FLUSH Q8H [facility] Last Admin: 01/13/17 04:19 Dose: 10 ml - Exam General: alert, oriented, cooperative Extremities: other (Status post amputation left foot with christina in place. Foot color looks normal. Wound is healing nicely without erythema or drainage.) - Problem List & Annotations (1) Amputation, traumatic, toes SNOMED Code(s): 38173771 Code(s): S98.139A - COMPLETE TRAUMATIC AMPUTATION OF ONE UNSP LESSER TOE, INIT Status: Acute Current Visit: Yes (2) Osteomyelitis SNOMED Code(s): 31319238 Code(s): M86.9 - OSTEOMYELITIS, UNSPECIFIED Status: Acute Current Visit: Yes - Problem List Review Problem List Initiated/Reviewed/Updated: Yes - Plan Plan:: Continue current care. Podiatry to determine when he can bear weight and remove his christina in the left foot.
[2017-01-23] MEDS: metFORMIN 500 MG Tab PO SCH ×2 (08:45→17:04)
[2017-01-23] MEDS: Metoprolol Succinate 25 MG Tab.ER PO SCH (08:45)
[2017-01-23] MEDS: Clopidogrel 75 MG Tab PO SCH (08:45)
[2017-01-23] MEDS: Diclofenac Sodium 1% Gel 100 GM Tube TOP SCH ×4 (08:47→20:10)
[2017-01-23] MEDS: Sodium Chloride 0.9% 250 ML IV SCH (20:09)
[2017-01-24] MEDS: Acetaminophen/HYDROcodone 325-5 MG Tab PO PRN ×3 (02:31→19:05)
[2017-01-24] MEDS: Piperacillin/Tazobactam 4.5 GM in Sodium Chloride 0.9% 100 ML IV SCH ×3 (04:32→20:15)
[2017-01-24] MEDS: Sodium Chloride 0.9% 10 ML Syringe FLUSH SCH ×3 (04:33→20:48)
[2017-01-24] MEDS: metFORMIN 500 MG Tab PO SCH ×2 (08:17→18:15)
[2017-01-24] MEDS: Clopidogrel 75 MG Tab PO SCH (08:17)
[2017-01-24] MEDS: Diclofenac Sodium 1% Gel 100 GM Tube TOP SCH ×4 (08:17→20:17)
[2017-01-24] MEDS: Metoprolol Succinate 25 MG Tab.ER PO SCH (08:17)
[2017-01-24] MEDS: Sodium Chloride 0.9% 10 ML Syringe FLUSH PRN (12:45)
[2017-01-25] MEDS: Acetaminophen/HYDROcodone 325-5 MG Tab PO PRN ×3 (00:48→20:52)
[2017-01-25] MEDS: Sodium Chloride 0.9% 10 ML Syringe FLUSH PRN ×3 (04:09→19:38)
[2017-01-25] MEDS: Piperacillin/Tazobactam 4.5 GM in Sodium Chloride 0.9% 100 ML IV SCH ×3 (04:09→19:45)
[2017-01-25] MEDS: Sodium Chloride 0.9% 250 ML IV SCH (04:09)
[2017-01-25] MEDS: Sodium Chloride 0.9% 10 ML Syringe FLUSH SCH ×3 (04:48→20:35)
[2017-01-25] MEDS: Metoprolol Succinate 25 MG Tab.ER PO SCH (09:23)
[2017-01-25] MEDS: metFORMIN 500 MG Tab PO SCH ×2 (09:23→17:46)
[2017-01-25] MEDS: Collagenase Oint 30 GM Tube TOP SCH (09:23)
[2017-01-25] MEDS: Clopidogrel 75 MG Tab PO SCH (09:23)
[2017-01-25] MEDS: Diclofenac Sodium 1% Gel 100 GM Tube TOP SCH ×4 (09:24→20:36)
[2017-01-26] MEDS: Piperacillin/Tazobactam 4.5 GM in Sodium Chloride 0.9% 100 ML IV SCH ×3 (03:40→20:48)
[2017-01-26] MEDS: Sodium Chloride 0.9% 10 ML Syringe FLUSH SCH ×3 (04:31→21:45)
[2017-01-26] MEDS: Acetaminophen/HYDROcodone 325-5 MG Tab PO PRN ×4 (05:08→22:16)
[2017-01-26] MEDS: metFORMIN 500 MG Tab PO SCH ×2 (08:03→17:49)
[2017-01-26] MEDS: Clopidogrel 75 MG Tab PO SCH (08:03)
[2017-01-26] MEDS: Metoprolol Succinate 25 MG Tab.ER PO SCH (08:03)
[2017-01-26] MEDS: Diclofenac Sodium 1% Gel 100 GM Tube TOP SCH ×4 (08:14→21:48)
[2017-01-26] MEDS: Collagenase Oint 30 GM Tube TOP SCH (09:19)
[2017-01-26] MEDS: Sodium Chloride 0.9% 10 ML Syringe FLUSH PRN (12:53)
[2017-01-27] MEDS: Acetaminophen/HYDROcodone 325-5 MG Tab PO PRN ×2 (04:29→20:20)
[2017-01-27] MEDS: Piperacillin/Tazobactam 4.5 GM in Sodium Chloride 0.9% 100 ML IV SCH ×3 (04:31→19:36)
[2017-01-27] MEDS: Sodium Chloride 0.9% 10 ML Syringe FLUSH SCH ×3 (04:32→20:18)
[2017-01-27] MEDS: Clopidogrel 75 MG Tab PO SCH (08:59)
[2017-01-27] MEDS: metFORMIN 500 MG Tab PO SCH ×2 (08:59→18:20)
[2017-01-27] MEDS: Metoprolol Succinate 25 MG Tab.ER PO SCH (09:00)
[2017-01-27] MEDS: Collagenase Oint 30 GM Tube TOP SCH (09:00)
[2017-01-27] MEDS: Diclofenac Sodium 1% Gel 100 GM Tube TOP SCH ×3 (09:01→20:52)
[2017-01-27] MEDS: Sodium Chloride 0.9% 250 ML IV SCH (12:47)
[2017-01-28] MEDS: Piperacillin/Tazobactam 4.5 GM in Sodium Chloride 0.9% 100 ML IV SCH ×3 (03:53→19:53)
[2017-01-28] MEDS: Sodium Chloride 0.9% 10 ML Syringe FLUSH SCH ×3 (04:44→20:34)
[2017-01-28] MEDS: Acetaminophen/HYDROcodone 325-5 MG Tab PO PRN ×2 (04:46→19:52)
[2017-01-28] MEDS: Diclofenac Sodium 1% Gel 100 GM Tube TOP SCH ×5 (08:32→20:37)
[2017-01-28] MEDS: Metoprolol Succinate 25 MG Tab.ER PO SCH (08:33)
[2017-01-28] MEDS: metFORMIN 500 MG Tab PO SCH ×2 (08:33→18:43)
[2017-01-28] MEDS: Clopidogrel 75 MG Tab PO SCH (08:34)
[2017-01-28] MEDS: Collagenase Oint 30 GM Tube TOP SCH (08:34)
[2017-01-29] MEDS: Acetaminophen/HYDROcodone 325-5 MG Tab PO PRN ×2 (03:35→21:08)
[2017-01-29] MEDS: Piperacillin/Tazobactam 4.5 GM in Sodium Chloride 0.9% 100 ML IV SCH ×3 (03:39→20:17)
[2017-01-29] MEDS: Sodium Chloride 0.9% 10 ML Syringe FLUSH SCH ×3 (04:28→21:09)
[2017-01-29] MEDS: metFORMIN 500 MG Tab PO SCH ×2 (09:16→18:08)
[2017-01-29] MEDS: Diclofenac Sodium 1% Gel 100 GM Tube TOP SCH ×4 (09:16→22:15)
[2017-01-29] MEDS: Clopidogrel 75 MG Tab PO SCH (09:16)
[2017-01-29] MEDS: Collagenase Oint 30 GM Tube TOP SCH (09:17)
[2017-01-29] MEDS: Metoprolol Succinate 25 MG Tab.ER PO SCH (09:17)
[2017-01-29] MEDS: Sodium Chloride 0.9% 250 ML IV SCH (12:48)
[2017-01-30] MEDS: Acetaminophen/HYDROcodone 325-5 MG Tab PO PRN ×4 (04:14→23:27)
[2017-01-30] MEDS: Piperacillin/Tazobactam 4.5 GM in Sodium Chloride 0.9% 100 ML IV SCH ×3 (04:15→19:37)
[2017-01-30] MEDS: Sodium Chloride 0.9% 10 ML Syringe FLUSH PRN ×2 (04:15→12:47)
[2017-01-30] MEDS: Sodium Chloride 0.9% 250 ML IV SCH (04:26)
[2017-01-30] MEDS: Sodium Chloride 0.9% 10 ML Syringe FLUSH SCH ×3 (05:14→20:29)
[2017-01-30] MEDS: Diclofenac Sodium 1% Gel 100 GM Tube TOP SCH ×4 (08:23→21:03)
[2017-01-30] MEDS: Collagenase Oint 30 GM Tube TOP SCH (08:24)
[2017-01-30] MEDS: Metoprolol Succinate 25 MG Tab.ER PO SCH (08:24)
[2017-01-30] MEDS: Clopidogrel 75 MG Tab PO SCH (08:25)
[2017-01-30] MEDS: metFORMIN 500 MG Tab PO SCH ×2 (08:25→19:01)
[2017-01-31] MEDS: Piperacillin/Tazobactam 4.5 GM in Sodium Chloride 0.9% 100 ML IV SCH ×3 (03:41→19:58)
[2017-01-31] MEDS: Sodium Chloride 0.9% 10 ML Syringe FLUSH SCH ×3 (04:30→21:00)
[2017-01-31] MEDS: Acetaminophen/HYDROcodone 325-5 MG Tab PO PRN ×3 (04:32→19:49)
[2017-01-31] MEDS: metFORMIN 500 MG Tab PO SCH ×2 (07:56→19:07)
[2017-01-31] MEDS: Clopidogrel 75 MG Tab PO SCH (08:00)
[2017-01-31] MEDS: Metoprolol Succinate 25 MG Tab.ER PO SCH (09:00)
[2017-01-31] MEDS: Collagenase Oint 30 GM Tube TOP SCH (10:23)
[2017-01-31] MEDS: Diclofenac Sodium 1% Gel 100 GM Tube TOP SCH ×4 (10:24→21:14)
[2017-02-01] MEDS: Acetaminophen/HYDROcodone 325-5 MG Tab PO PRN ×5 (00:04→21:32)
[2017-02-01] MEDS: Piperacillin/Tazobactam 4.5 GM in Sodium Chloride 0.9% 100 ML IV SCH ×3 (04:22→20:30)
[2017-02-01] MEDS: Sodium Chloride 0.9% 250 ML IV SCH ×3 (04:22→20:30)
[2017-02-01] MEDS: Sodium Chloride 0.9% 10 ML Syringe FLUSH SCH ×3 (07:45→20:30)
[2017-02-01] MEDS: metFORMIN 500 MG Tab PO SCH ×2 (08:38→17:26)
[2017-02-01] MEDS: Clopidogrel 75 MG Tab PO SCH (08:38)
[2017-02-01] MEDS: Collagenase Oint 30 GM Tube TOP SCH (08:38)
[2017-02-01] MEDS: Metoprolol Succinate 25 MG Tab.ER PO SCH (08:38)
[2017-02-01] MEDS: Diclofenac Sodium 1% Gel 100 GM Tube TOP SCH ×4 (08:39→20:41)
[2017-02-01] MEDS: Sodium Chloride 0.9% 10 ML Syringe FLUSH PRN (21:29)
[2017-02-02] MEDS: Acetaminophen/HYDROcodone 325-5 MG Tab PO PRN ×4 (02:33→23:42)
[2017-02-02] MEDS: Piperacillin/Tazobactam 4.5 GM in Sodium Chloride 0.9% 100 ML IV SCH ×3 (04:17→19:43)
[2017-02-02] MEDS: Sodium Chloride 0.9% 10 ML Syringe FLUSH SCH ×3 (05:57→19:41)
[2017-02-02] MEDS: Collagenase Oint 30 GM Tube TOP SCH (09:46)
[2017-02-02] MEDS: metFORMIN 500 MG Tab PO SCH ×2 (09:46→18:42)
[2017-02-02] MEDS: Clopidogrel 75 MG Tab PO SCH (09:46)
[2017-02-02] MEDS: Metoprolol Succinate 25 MG Tab.ER PO SCH (09:47)
[2017-02-02] MEDS: Diclofenac Sodium 1% Gel 100 GM Tube TOP SCH ×4 (09:47→20:36)
[2017-02-02] MEDS: Sodium Chloride 0.9% 10 ML Syringe FLUSH PRN ×2 (12:37→20:34)
[2017-02-02] MEDS: Sodium Chloride 0.9% 250 ML IV SCH (19:42)
[2017-02-03] MEDS: Piperacillin/Tazobactam 4.5 GM in Sodium Chloride 0.9% 100 ML IV SCH ×3 (04:05→20:46)
[2017-02-03] MEDS: Acetaminophen/HYDROcodone 325-5 MG Tab PO PRN ×3 (04:06→20:57)
[2017-02-03] MEDS: Sodium Chloride 0.9% 10 ML Syringe FLUSH SCH ×3 (04:40→21:32)
[2017-02-03] MEDS: Clopidogrel 75 MG Tab PO SCH (08:43)
[2017-02-03] MEDS: metFORMIN 500 MG Tab PO SCH ×2 (08:43→17:42)
[2017-02-03] MEDS: Metoprolol Succinate 25 MG Tab.ER PO SCH (10:01)
[2017-02-03] MEDS: Collagenase Oint 30 GM Tube TOP SCH ×2 (10:02→10:25)
[2017-02-03] MEDS: Diclofenac Sodium 1% Gel 100 GM Tube TOP SCH ×5 (10:02→21:32)
[2017-02-04] MEDS: Acetaminophen/HYDROcodone 325-5 MG Tab PO PRN ×4 (01:10→20:29)
[2017-02-04] MEDS: Piperacillin/Tazobactam 4.5 GM in Sodium Chloride 0.9% 100 ML IV SCH ×3 (04:10→20:29)
[2017-02-04] MEDS: Sodium Chloride 0.9% 10 ML Syringe FLUSH SCH ×3 (04:50→21:22)
[2017-02-04] MEDS: Metoprolol Succinate 25 MG Tab.ER PO SCH (09:25)
[2017-02-04] MEDS: metFORMIN 500 MG Tab PO SCH ×2 (09:26→18:11)
[2017-02-04] MEDS: Clopidogrel 75 MG Tab PO SCH (09:26)
[2017-02-04] MEDS: Diclofenac Sodium 1% Gel 100 GM Tube TOP SCH ×4 (09:32→22:20)
[2017-02-04] MEDS: Collagenase Oint 30 GM Tube TOP SCH (10:37)
[2017-02-05] MEDS: Acetaminophen/HYDROcodone 325-5 MG Tab PO PRN ×4 (00:35→22:20)
[2017-02-05] MEDS: Piperacillin/Tazobactam 4.5 GM in Sodium Chloride 0.9% 100 ML IV SCH ×3 (04:05→19:43)
[2017-02-05] MEDS: Sodium Chloride 0.9% 10 ML Syringe FLUSH SCH ×3 (04:45→20:37)
[2017-02-05] MEDS: Clopidogrel 75 MG Tab PO SCH (09:59)
[2017-02-05] MEDS: metFORMIN 500 MG Tab PO SCH ×2 (09:59→17:58)
[2017-02-05] MEDS: Collagenase Oint 30 GM Tube TOP SCH (10:00)
[2017-02-05] MEDS: Metoprolol Succinate 25 MG Tab.ER PO SCH (10:00)
[2017-02-05] MEDS: Diclofenac Sodium 1% Gel 100 GM Tube TOP SCH ×4 (10:01→21:02)
[2017-02-05] MEDS: Sodium Chloride 0.9% 250 ML IV SCH (12:25)
[2017-02-05] MEDS: Sodium Chloride 0.9% 10 ML Syringe FLUSH PRN ×2 (12:25→13:13)
[2017-02-06] MEDS: Sodium Chloride 0.9% 10 ML Syringe FLUSH PRN ×3 (03:44→19:15)
[2017-02-06] MEDS: Piperacillin/Tazobactam 4.5 GM in Sodium Chloride 0.9% 100 ML IV SCH ×3 (03:44→19:15)
[2017-02-06] MEDS: Sodium Chloride 0.9% 10 ML Syringe FLUSH SCH ×3 (04:35→20:04)
[2017-02-06] MEDS: Acetaminophen/HYDROcodone 325-5 MG Tab PO PRN (04:37)
--- NOTE | 2017-02-06 09:26 | DISCH ---
DISCHARGE DATE: 02/05/2017 REASON FOR ADMISSION: 1. Osteomyelitis. 2. Type 2 diabetes. 3. Back pain. 4. Obesity. 5. Diabetic neuropathy. 6. Osteoarthritis of the knees. DISCHARGE DIAGNOSES: 1. Osteomyelitis. 2. Type 2 diabetes. 3. Back pain. 4. Obesity. 5. Diabetic neuropathy. 6. Osteoarthritis of the knees. BRIEF HISTORY AND HOSPITAL COURSE: This is a 71-year-old male with type 2 diabetes, had amputation of the toe in November and subsequent osteomyelitis. He was admitted for IV antibiotics. He has completed his course, and he is due to be discharged today. He used p.r.n. hydrocodone for back pain. He is on metformin for type 2 diabetes. DISCHARGE MEDICATIONS: 1. Plavix 75 mg a day. 2. Diclofenac 4 grams q.i.d. 3. Metoprolol 12.5 mg daily. 4. Metformin 500 mg p.o. b.i.d. with meals. FOLLOWUP: He has several appointments this week with his doctors, namely Infectious Disease, the surgeon, and also with Dr. Velasquez, his PCP, on . I discharged him home with no Home Health Services. I spent, at least, 35 minutes in the discharge of the patient. /[id number] JOHN/MARIAN
[2017-02-06] MEDS: metFORMIN 500 MG Tab PO SCH ×2 (09:29→18:16)
[2017-02-06] MEDS: Diclofenac Sodium 1% Gel 100 GM Tube TOP SCH ×3 (09:29→18:17)
[2017-02-06] MEDS: Clopidogrel 75 MG Tab PO SCH (09:29)
[2017-02-06] MEDS: Collagenase Oint 30 GM Tube TOP SCH (09:29)
[2017-02-06 10:01] VITALS: BP 121/62
[2017-02-06] MEDS: Metoprolol Succinate 25 MG Tab.ER PO SCH (10:01)
== END 2017-02-06 20:16 | disposition home or self-care (01) | DRG 638 ==
LOC: FB.MS 11:22
PROVIDERS: ADMIT Family Medicine; ATTEND Family Medicine
DX: E11.69 Type 2 diabetes mellitus with other specified complication (principal); M86.9 Osteomyelitis, unspecified; Z79.84 Long term (current) use of oral hypoglycemic drugs; E11.51 Type 2 diabetes mellitus with diabetic peripheral angiopathy without gangrene; E11.42 Type 2 diabetes mellitus with diabetic polyneuropathy; Z89.422 Acquired absence of other left toe(s); Z89.412 Acquired absence of left great toe; Z85.828 Personal history of other malignant neoplasm of skin; Z79.2 Long term (current) use of antibiotics; M54.9 Dorsalgia, unspecified; M17.0 Bilateral primary osteoarthritis of knee; E66.9 Obesity, unspecified; Z68.35 Body mass index [BMI] 35.0-35.9, adult
CPT/HCPCS: 36415; 82565; 82962; 85025; 85027; 85651; 86140; 97116-GP; 97161-GP; A9270-GY; J1642; J2543; J7030; J7050

== ENCOUNTER 2018-08-22 14:24 | Inpatient (IN) | payer MEDICARE, BC ==
--- NOTE | 2018-08-22 15:16 | EDM.PDOC ---
ED HPI GENERAL MEDICAL PROBLEM - General Chief Complaint: General Stated Complaint: DEHYDRATION Time Seen by Provider: 08/22/18 14:40 Source of Information: Reports: Patient, Family History Limitations: Reports: No Limitations - History of Present Illness INITIAL COMMENTS - FREE TEXT/NARRATIVE: c/o lost of appetite x 2d thinks he may be dehydrated, however he has been drinking lots of water and 1-2 cups coffee daily cannot stand the sight of food, taking a "[place] Diet" which is a protein powder mixed with water, took 350 kcals today was dehydrated 2y ago, some questions that it may have been d/t antbxs, pt thinks the same thing is happening now has been on metformin for yrs, on Januvia for less then a yr (9-10 month), A1C had been in 6 range, in 8 range more recently pt thinks metformin may have caused his loss of appetite and he did not take it since last night no pain other than chronic back pain for which he takes Aleve 2 tabs BID did awake 2 nights ago with a sharp R-sided GALINDO that went away without meds had amputation 08/05 of his R middle toe at [facility], saw his surgeon Dr Yadav yesterday who removed sutures, no problems or sxs related to toe, surgery site on PE appears to be healing well labs here include trop neg 2y ago, CRP/CBD/BMP neg 2y ago except Na 133, BUN/cr 19/0.9 - Related Data Allergies Allergy/AdvReac Type Severity Reaction Status Date / Time No Known Allergies Allergy Verified 08/22/18 14:36 Home Meds: Home Meds Clopidogrel Bisulfate [Clopidogrel] 75 mg PO DAILY 07/29/16 [History] Metoprolol Succinate [Toprol XL] 12.5 mg PO DAILY 01/04/17 [History] metFORMIN [Glucophage] 1,000 mg PO BIDMEALS 01/04/17 [History] Aspirin [Ecotrin] 81 mg PO DAILY 08/22/18 [History] Naproxen Sodium 440 mg PO DAILY 08/22/18 [History] SitaGLIPtin [Januvia] 100 mg PO DAILY 08/22/18 [History] atorvaSTATin Calcium [Lipitor] 40 mg PO BEDTIME 08/22/18 [History] Past Medical History HEENT History: Reports: Impaired Vision Cardiovascular History: Reports: CAD, High Cholesterol, Hypertension, PVD Gastrointestinal History: Reports: Other (See Below) Other Gastrointestinal History: intermittent constipation/diarrhea due to sahra Genitourinary History: Reports: BPH Musculoskeletal History: Reports: Arthritis, Other (See Below) Other Musculoskeletal History: arthritis - knees, feet, 2 lumbar discs - degenerative joint disease Neurological History: Reports: Neuropathy, Diabetic, Neuropathy, Peripheral, Other (See Below) Endocrine/Metabolic History: Reports: Diabetes, Type II, Obesity/BMI 30+, Other (See Below) Other Endocrine/Metabolic History: thyroid gland enlarged on carotid CT angiogram, dx with NIDDM - 7 or 8 years ago, A1C 6 mo ago 5.4 Oncologic (Cancer) History: Reports: Basal Cell Carcinoma Other Oncologic History: removed from left shoulder Dermatologic History: Reports: Venous Stasis Dermatitis, Other (See Below) Other Dermatologic History: carcinoma on left shoulder removed several years ago - Infectious Disease History Infectious Disease History: Reports: Chicken Pox, Measles - Past Surgical History HEENT Surgical History: Reports: Tonsillectomy Cardiovascular Surgical History: Reports: Percutaneous Transluminal Angioplasty Other Cardiovascular Surgeries/Procedures: PCTA 01/02/17, carotid CT angiogram - less than 50% blockage on right, 55% stenosis on left GI Surgical History: Reports: Appendectomy, Cholecystectomy Other GI Surgeries/Procedures: 07/31/16 - sahra Musculoskeletal Surgical History: Reports: Other (See Below) Other Musculoskeletal Surgeries/Procedures:: amputation of all toes of the left foot related to osteomyelitis. Third toe amputated on the right foot. Social & Family History - Family History Family Medical History: Noncontributory Neurological: Reports: Alzheimers Disease - Tobacco Use Smoking Status *Q: Never Smoker Second Hand Smoke Exposure: No - Caffeine Use Caffeine Use: Reports: Coffee Other Caffeine Use: 2 cups QAM - Recreational Drug Use Recreational Drug Use: No ED ROS GENERAL - Review of Systems Review Of Systems: See Below Constitutional: Reports: Decreased Appetite, Other (no wt change in past month) HEENT: Reports: No Symptoms Respiratory: Reports: No Symptoms Cardiovascular: Reports: No Symptoms Endocrine: Reports: No Symptoms GI/Abdominal: Reports: No Symptoms : Reports: No Symptoms Musculoskeletal: Reports: Back Pain Skin: Reports: No Symptoms Neurological: Reports: No Symptoms Psychiatric: Reports: No Symptoms Hematologic/Lymphatic: Reports: No Symptoms Immunologic: Reports: No Symptoms ED EXAM, GENERAL - Physical Exam Exam: See Below Exam Limited By: No Limitations General Appearance: Alert, WD/WN, No Apparent Distress Nose: Normal Inspection, Normal Mucosa, No Blood Throat/Mouth: Normal Inspection, Normal Lips, Normal Teeth, Normal Gums, Normal Oropharynx, Normal Voice, No Airway Compromise Head: Atraumatic, Normocephalic Neck: Normal Inspection, Supple, Non-Tender, Full Range of Motion. No: Lymphadenopathy (R), Lymphadenopathy (L) Respiratory/Chest: No Respiratory Distress, Lungs Clear, Normal Breath Sounds, No Accessory Muscle Use, Chest Non-Tender Cardiovascular: Regular Rate, Rhythm, No Edema, No Murmur, Other (2/6 FERNANDO at LSB ) GI/Abdominal: Soft, Non-Tender, No Distention, No Mass Back Exam: Normal Inspection, Full Range of Motion, NT Extremities: Non-Tender, No Pedal Edema, Other (thin pretib skin with inc'd ) Neurological: Alert, Oriented, CN II-XII Intact, Normal Cognition, No Motor/ Sensory Deficits Psychiatric: Normal Affect, Normal Mood Skin Exam: Warm, Dry, Intact, Normal Color, No Rash Lymphatic: No Adenopathy Course - Vital Signs Last Recorded V/S: Last Vital Signs Temp 36.6 C 08/22/18 14:30 Pulse 97 08/22/18 14:30 Resp 16 08/22/18 14:30 BP 119/79 08/22/18 14:30 Pulse Ox 98 08/22/18 14:30 Orthostatic Blood Pressure [ 121/70 Standing] Orthostatic Blood Pressure [ 110/73 Sitting] Orthostatic Blood Pressure [ 115/73 Supine] - Orders/Labs/Meds Orders: Active Orders 24 hr Category Date Time Status EKG Documentation Completion [RC] ASDIRECTED Care 08/22/18 15:55 Active Chest 2V [CR] Stat Exams 08/22/18 15:55 Taken CULTURE BLOOD [BC] Stat Lab 08/22/18 16:26 Ordered LACTIC ACID [CHEM] Stat Lab 08/22/18 16:26 Ordered cefTRIAXone [Rocephin] Med 08/22/18 16:30 Active 1 gm IVPUSH Q24H EKG 12 Lead [EK] Routine Ther 08/22/18 15:54 Ordered Medication Orders Ceftriaxone Sodium (Rocephin) 1 gm IVPUSH Q24H [facility] Last Admin: 08/22/18 16:51 Dose: 1 gm Sodium Chloride (Saline Flush) 10 ml FLUSH ASDIRECTED PRN PRN Reason: IV Use Last Admin: 08/22/18 16:45 Dose: 10 ml Labs: Laboratory Tests 08/22/18 08/22/18 08/22/18 Range/Units 15:17 15:17 15:17 WBC 3.7 L (4.5-12.0) X10-3/uL RBC 5.22 (4.30-5.75) x10(6)uL Hgb 13.7 (11.5-15.5) g/dL Hct 41.4 (30.0-51.3) % MCV 79.3 L (80-96) fL MCH 26.3 L (27.7-33.6) pg MCHC 33.1 (32.2-35.4) g/dL RDW 14.2 (11.5-15.5) % Plt Count 154 (125-369) X10(3)uL MPV 8.3 (7.4-10.4) fL Add Manual Diff Yes Neutrophils % (Manual) 69 (46-82) % Band Neutrophils % 2 (0-6) % Lymphocytes % (Manual) 18 (13-37) % Monocytes % (Manual) 11 (4-12) % Sodium 128 L (135-145) mmol/L Potassium 4.4 (3.5-5.3) mmol/L Chloride 93 L (100-110) mmol/L Carbon Dioxide 28 (21-32) mmol/L BUN 15 (7-18) mg/dL Creatinine 1.1 (0.70-1.30) mg/dL Est Cr Clr Drug Dosing 67.59 mL/min Estimated GFR (MDRD) > 60 (>60) BUN/Creatinine Ratio 13.6 (9-20) Glucose 196 H (80-116) mg/dL Calcium 8.7 (8.6-10.2) mg/dL Total Bilirubin 1.8 H (0.1-1.3) mg/dL AST 101 H (5-25) IU/L ALT 85 H (12-36) U/L Alkaline Phosphatase 121 H (56-112) IU/L Troponin I (<0.017-0.056) ng/mL C-Reactive Protein 16.2 H* (0.5-0.9) mg/dL NT-Pro-B Natriuret Pep (<=125) pg/mL Total Protein 7.1 (6.0-8.0) g/dL Albumin 3.4 (3.2-4.6) g/dL Globulin 3.7 g/dL Albumin/Globulin Ratio 0.9 TSH, Ultra Sensitive 1.39 (0.36-3.74) IU/mL Urine Color (YELLOW) Urine Appearance (CLEAR) Urine pH (5.0-6.5) Ur Specific [place] (1.010-1.025) Urine Protein (NEGATIVE) mg/dL Urine Glucose (UA) (NEGATIVE) mg/dL Urine Ketones (NEGATIVE) mg/dL Urine Occult Blood (NEGATIVE) Urine Nitrite (NEGATIVE) Urine Bilirubin (NEGATIVE) Urine Urobilinogen (NEGATIVE) mg/dL Ur Leukocyte Esterase (NEGATIVE) Urine RBC (0) Urine WBC (0) Ur Squamous Epith Cells (NS,R,O) Urine Bacteria (NS) Coarse Granular Casts (NS) 08/22/18 08/22/18 Range/Units 15:17 15:49 WBC (4.5-12.0) X10-3/uL RBC (4.30-5.75) x10(6)uL Hgb (11.5-15.5) g/dL Hct (30.0-51.3) % MCV (80-96) fL MCH (27.7-33.6) pg MCHC (32.2-35.4) g/dL RDW (11.5-15.5) % Plt Count (125-369) X10(3)uL MPV (7.4-10.4) fL Add Manual Diff Neutrophils % (Manual) (46-82) % Band Neutrophils % (0-6) % Lymphocytes % (Manual) (13-37) % Monocytes % (Manual) (4-12) % Sodium (135-145) mmol/L Potassium (3.5-5.3) mmol/L Chloride (100-110) mmol/L Carbon Dioxide (21-32) mmol/L BUN (7-18) mg/dL Creatinine (0.70-1.30) mg/dL Est Cr Clr Drug Dosing mL/min Estimated GFR (MDRD) (>60) BUN/Creatinine Ratio (9-20) Glucose (80-116) mg/dL Calcium (8.6-10.2) mg/dL Total Bilirubin (0.1-1.3) mg/dL AST (5-25) IU/L ALT (12-36) U/L Alkaline Phosphatase (56-112) IU/L Troponin I < 0.017 L (<0.017-0.056) ng/mL C-Reactive Protein (0.5-0.9) mg/dL NT-Pro-B Natriuret Pep 410 H (<=125) pg/mL Total Protein (6.0-8.0) g/dL Albumin (3.2-4.6) g/dL Globulin g/dL Albumin/Globulin Ratio TSH, Ultra Sensitive (0.36-3.74) IU/mL Urine Color Yellow (YELLOW) Urine Appearance Slightly cloudy (CLEAR) Urine pH 6.0 (5.0-6.5) Ur Specific [place] 1.025 (1.010-1.025) Urine Protein Trace (NEGATIVE) mg/dL Urine Glucose (UA) 50 H (NEGATIVE) mg/dL Urine Ketones Negative (NEGATIVE) mg/dL Urine Occult Blood Moderate H (NEGATIVE) Urine Nitrite Negative (NEGATIVE) Urine Bilirubin Small H (NEGATIVE) Urine Urobilinogen Normal (NEGATIVE) mg/dL Ur Leukocyte Esterase Negative (NEGATIVE) Urine RBC 0-5 (0) Urine WBC 0-5 (0) Ur Squamous Epith Cells Few H (NS,R,O) Urine Bacteria Few H (NS) Coarse Granular Casts Few H (NS) Meds: Medications Generic Name Dose Route Start Last Admin Trade Name Freq PRN Reason Stop Dose Admin Ceftriaxone Sodium 1 gm 08/22/18 16:30 08/22/18 16:51 Rocephin IVPUSH 1 gm Q24H [facility] Administration Sodium Chloride 10 ml 08/22/18 16:45 08/22/18 16:45 Saline Flush FLUSH 10 ml ASDIRECTED PRN Administration IV Use Discontinued Medications Generic Name Dose Route Start Last Admin Trade Name Freq PRN Reason Stop Dose Admin Azithromycin 500 mg 08/22/18 16:27 08/22/18 16:51 Zithromax PO 08/22/18 16:28 500 mg ONETIME ONE Administration - Re-Assessments/Exams Free Text/Narrative Re-Assessment/Exam: 08/22/18 16:55 CxR, 2 view, shows a new linear infiltrate at L base highly suspicious for an early pneumonia, no rales at the base however WBC low and CRP quite high at 16, both c/w infection, altho CRP might be 2 or 3 for a ptient who is 18d postop, it should not be 16 in clinical context of his new anorexia and weakness, pt meets criteria for LLL pneumonia BC x 2 and lactic acid are pending has h/o appy and choly, has new inc'd LFTs, no abd pain however, must wonder re passive liver congestion, BNP pending EKG with SR 75, low voltage, no LVH by voltage criteria will admit, ceftriaxone and azithro ordered, pt agrees, Dr Nava is the hospitalist and will see pt in AM influenza testing pending Departure - Departure Time of Disposition: 16:59 Disposition: Admitted As Inpatient 66 Condition: Fair Clinical Impression: Left lower lobe pneumonia, CHF, Congestive heart failure, Chronic passive congestion of liver, Elevated liver function tests, Mild dehydration, Anorexia, Hyponatremia, Orthostasis, Leukopenia, Elevated C-reactive protein, Postop pneumonia, Diabetes mellitus with hyperglycemia, Weakness generalized - Discharge Information *PRESCRIPTION DRUG MONITORING PROGRAM REVIEWED*: Not Applicable *COPY OF PRESCRIPTION DRUG MONITORING REPORT IN PATIENT ROBYN: Not Applicable - My Orders Last 24 Hours: My Active Orders 08/22/18 15:54 EKG 12 Lead [EK] Routine 08/22/18 15:55 EKG Documentation Completion [RC] ASDIRECTED Chest 2V [CR] Stat 08/22/18 16:26 CULTURE BLOOD [BC] Stat LACTIC ACID [CHEM] Stat 08/22/18 16:30 cefTRIAXone [Rocephin] 1 gm IVPUSH Q24H - Assessment/Plan Last 24 Hours: My Active Orders 08/22/18 15:54 EKG 12 Lead [EK] Routine 08/22/18 15:55 EKG Documentation Completion [RC] ASDIRECTED Chest 2V [CR] Stat 08/22/18 16:26 CULTURE BLOOD [BC] Stat LACTIC ACID [CHEM] Stat 08/22/18 16:30 cefTRIAXone [Rocephin] 1 gm IVPUSH Q24H
[2018-08-22] MEDS ORDERED: Azithromycin 500 MG Tab PO ONE (16:27)
[2018-08-22] MEDS ORDERED: cefTRIAXone 1 GM Vial IVPUSH SCH (16:30)
[2018-08-22] MEDS: Sodium Chloride 0.9% 10 ML Syringe FLUSH PRN (16:45)
[2018-08-22] MEDS ORDERED: Acetaminophen 325 MG Tab PO PRN (17:15)
[2018-08-22] MEDS ORDERED: Magnesium Hydroxide 400 MG/5 ML Susp 30 ML Cup PO PRN (17:15)
[2018-08-22] MEDS ORDERED: Ondansetron 4 MG/2 ML SDV IV PRN (17:15)
[2018-08-22] MEDS ORDERED: Bisacodyl 5 MG Tab PO PRN (17:15)
[2018-08-22] MEDS ORDERED: Zolpidem 5 MG Tab PO PRN (17:15)
[2018-08-22] MEDS ORDERED: metFORMIN 500 MG Tab PO SCH (18:00)
[2018-08-22] MEDS ORDERED: Enoxaparin 40 MG/0.4 ML Syringe SUBCUT SCH (18:00)
[2018-08-22] MEDS: Sodium Chloride 0.9% 1,000 ML IV SCH (18:24)
[2018-08-22] MEDS ORDERED: atorvaSTATin 40 MG Tab PO SCH (21:00)
--- NOTE | 2018-08-23 07:19 | CR ---
INDICATION: Weak, question of pneumonia post-op. CHEST TWO VIEWS: Two PA views and a lateral view of the chest 08/22/18 were compared with 11/20/16 revealing the heart to remain normal in size and shape. The aorta is only minimally tortuous with suggestion of very minimal calcification in the arch. An active infiltrate or effusion was not identified. There are moderate degenerative changes in the lower thoracic spine. IMPRESSION: Stable chest--no acute process. MTDD
[2018-08-23] MEDS ORDERED: metFORMIN 1,000 MG Tab PO SCH (08:00)
[2018-08-23] MEDS: Sodium Chloride 0.9% 1,000 ML IV SCH (08:13)
[2018-08-23] MEDS: Sodium Chloride 0.9% 10 ML Syringe FLUSH PRN (08:15)
[2018-08-23] MEDS ORDERED: Azithromycin 250 MG Tab PO SCH (09:00)
[2018-08-23] MEDS ORDERED: Aspirin 81 MG Tab.EC PO SCH (09:00)
[2018-08-23] MEDS ORDERED: Clopidogrel 75 MG Tab PO SCH (09:00)
[2018-08-23] MEDS ORDERED: Metoprolol Succinate 25 MG Tab.ER PO SCH (09:00)
--- NOTE | 2018-08-23 09:00 | PCM.HP ---
H&P History of Present Illness - General Date of Service: 08/23/18 Admit Problem/Dx: Admission Diagnosis/Problem Admission Diagnosis/Problem Left lower lobe pneumonia Source of Information: Patient History Limitations: Reports: No Limitations - History of Present Illness Initial Comments - Free Text/Narative: Dorian was admitted for possible dehydration. Complains of lack of appetite, and generalized weakness.Over a period of 2-3 days. He denies nausea or vomiting. Does not have fever, chills or pain. He has a history of type 2 diabetes, peripheral vascular disease and a recent amputation of the third toe on the right previous "NEGRITO" diet to lose weight but he quit that recently. He just doesn't feel good and does not have appetite. This morning,after fluid challenge overnight,he feels much better. LOWER BACK Pain Score (Numeric/FACES): 3 - Related Data Allergies/Adverse Reactions: Allergies Allergy/AdvReac Type Severity Reaction Status Date / Time No Known Allergies Allergy Verified 08/22/18 14:36 Home Medications: Home Meds Clopidogrel Bisulfate [Clopidogrel] 75 mg PO DAILY 07/29/16 [History] Metoprolol Succinate [Toprol XL] 12.5 mg PO DAILY 01/04/17 [History] metFORMIN [Glucophage] 1,000 mg PO BIDMEALS 01/04/17 [History] Aspirin [Ecotrin] 81 mg PO DAILY 08/22/18 [History] Naproxen Sodium 440 mg PO DAILY 08/22/18 [History] Povidone-Iodine 1 applic IDERM DAILY 08/22/18 [History] SitaGLIPtin [Januvia] 100 mg PO DAILY 08/22/18 [History] atorvaSTATin Calcium [Lipitor] 40 mg PO BEDTIME 08/22/18 [History] Past Medical History HEENT History: Reports: Impaired Vision Cardiovascular History: Reports: CAD, High Cholesterol, Hypertension, PVD Gastrointestinal History: Reports: Other (See Below) Other Gastrointestinal History: intermittent constipation/diarrhea due to sahra Genitourinary History: Reports: BPH Musculoskeletal History: Reports: Arthritis, Other (See Below) Other Musculoskeletal History: arthritis - knees, feet, 2 lumbar discs - degenerative joint disease Neurological History: Reports: Neuropathy, Diabetic, Neuropathy, Peripheral, Other (See Below) Endocrine/Metabolic History: Reports: Diabetes, Type II, Obesity/BMI 30+, Other (See Below) Other Endocrine/Metabolic History: thyroid gland enlarged on carotid CT angiogram, dx with NIDDM - 7 or 8 years ago, A1C 6 mo ago 5.4 Oncologic (Cancer) History: Reports: Basal Cell Carcinoma Other Oncologic History: removed from left shoulder Dermatologic History: Reports: Venous Stasis Dermatitis, Other (See Below) Other Dermatologic History: carcinoma on left shoulder removed several years ago - Infectious Disease History Infectious Disease History: Reports: Chicken Pox, Measles - Past Surgical History HEENT Surgical History: Reports: Tonsillectomy Cardiovascular Surgical History: Reports: Percutaneous Transluminal Angioplasty Other Cardiovascular Surgeries/Procedures: PCTA 01/02/17, carotid CT angiogram - less than 50% blockage on right, 55% stenosis on left GI Surgical History: Reports: Appendectomy, Cholecystectomy Other GI Surgeries/Procedures: 07/31/16 - sahra Musculoskeletal Surgical History: Reports: Other (See Below) Other Musculoskeletal Surgeries/Procedures:: amputation of all toes of the left foot related to osteomyelitis. Third toe amputated on the right foot. Social & Family History - Family History Family Medical History: Noncontributory Neurological: Reports: Alzheimers Disease - Tobacco Use Smoking Status *Q: Never Smoker Second Hand Smoke Exposure: No - Caffeine Use Caffeine Use: Reports: Coffee Other Caffeine Use: 2 cups QAM - Recreational Drug Use Recreational Drug Use: No H&P Review of Systems - Review of Systems: Review Of Systems: ROS reveals no pertinent complaints other than HPI. Exam - Exam Exam: See Below - Vital Signs Vital Signs: Last Vital Signs Temp 98.4 F 08/23/18 07:56 Pulse 78 08/23/18 08:29 Resp 17 08/23/18 07:56 BP 118/74 08/23/18 08:29 Pulse Ox 96 08/23/18 07:56 Orthostatic Blood Pressure [ 121/70 Standing] Orthostatic Blood Pressure [ 110/73 Sitting] Orthostatic Blood Pressure [ 115/73 Supine] Weight: 120.344 kg - Exam General: Alert, Oriented, 4 HEENT: PERRLA, Hearing Intact, Mucosa Moist & [place], Nares Patent, Normal Nasal Septum, Posterior Pharynx Clear, Conjunctiva Clear, EOMI, EACs Clear, TMs Clear Neck: Supple, Trachea Midline, 2 Lungs: Clear to Auscultation, Normal Respiratory Effort Cardiovascular: Regular Rate, Regular Rhythm GI/Abdominal Exam: Normal Bowel Sounds, Soft, Non-Tender, No Organomegaly, No Distention, No Abnormal Bruit, No Mass, Pelvis Stable (Male) Exam: Deferred Rectal (Males) Exam: Deferred Back Exam: Normal Inspection, Full Range of Motion, NT Extremities: Normal Range of Motion, Non-Tender, No Pedal Edema, Normal Capillary Refill, Other (toe amputation). No: Pedal Edema, Leg Pain Skin: Warm, Dry, Intact Neurological: Cranial Nerves Intact, Reflexes Equal Bilateral Neuro Extensive - Mental Status: Alert, Oriented x3, Normal Mood/Affect, Normal Cognition Neuro Extensive - Motor, Sensory, Reflexes: CN II-XII Intact, Normal Gait, Normal Reflexes Psychiatric: Alert, Normal Affect, Normal Mood - Patient Data Lab Results Last 24 hrs: Laboratory Results - last 24 hr 08/22/18 08/22/18 08/22/18 Range/Units 15:17 15:17 15:17 WBC 3.7 L (4.5-12.0) X10-3/uL RBC 5.22 (4.30-5.75) x10(6)uL Hgb 13.7 (11.5-15.5) g/dL Hct 41.4 (30.0-51.3) % MCV 79.3 L (80-96) fL MCH 26.3 L (27.7-33.6) pg MCHC 33.1 (32.2-35.4) g/dL RDW 14.2 (11.5-15.5) % Plt Count 154 (125-369) X10(3)uL MPV 8.3 (7.4-10.4) fL Add Manual Diff Yes Neutrophils % (Manual) 69 (46-82) % Band Neutrophils % 2 (0-6) % Lymphocytes % (Manual) 18 (13-37) % Monocytes % (Manual) 11 (4-12) % Anisocytosis Microcytosis Ovalocytes Sodium 128 L (135-145) mmol/L Potassium 4.4 (3.5-5.3) mmol/L Chloride 93 L (100-110) mmol/L Carbon Dioxide 28 (21-32) mmol/L BUN 15 (7-18) mg/dL Creatinine 1.1 (0.70-1.30) mg/dL Est Cr Clr Drug Dosing 67.59 mL/min Estimated GFR (MDRD) > 60 (>60) BUN/Creatinine Ratio 13.6 (9-20) Glucose 196 H (80-116) mg/dL POC Glucose (80-116) mg/dL Lactic Acid (0.4-2.2) mmol/L Calcium 8.7 (8.6-10.2) mg/dL Total Bilirubin 1.8 H (0.1-1.3) mg/dL AST 101 H (5-25) IU/L ALT 85 H (12-36) U/L Alkaline Phosphatase 121 H (56-112) IU/L Troponin I (<0.017-0.056) ng/mL C-Reactive Protein 16.2 H* (0.5-0.9) mg/dL NT-Pro-B Natriuret Pep (<=125) pg/mL Total Protein 7.1 (6.0-8.0) g/dL Albumin 3.4 (3.2-4.6) g/dL Globulin 3.7 g/dL Albumin/Globulin Ratio 0.9 TSH, Ultra Sensitive 1.39 (0.36-3.74) IU/mL Urine Color (YELLOW) Urine Appearance (CLEAR) Urine pH (5.0-6.5) Ur Specific [place] (1.010-1.025) Urine Protein (NEGATIVE) mg/dL Urine Glucose (UA) (NEGATIVE) mg/dL Urine Ketones (NEGATIVE) mg/dL Urine Occult Blood (NEGATIVE) Urine Nitrite (NEGATIVE) Urine Bilirubin (NEGATIVE) Urine Urobilinogen (NEGATIVE) mg/dL Ur Leukocyte Esterase (NEGATIVE) Urine RBC (0) Urine WBC (0) Ur Squamous Epith Cells (NS,R,O) Urine Bacteria (NS) Coarse Granular Casts (NS) 08/22/18 08/22/18 08/22/18 Range/Units 15:17 15:17 15:49 WBC (4.5-12.0) X10-3/uL RBC (4.30-5.75) x10(6)uL Hgb (11.5-15.5) g/dL Hct (30.0-51.3) % MCV (80-96) fL MCH (27.7-33.6) pg MCHC (32.2-35.4) g/dL RDW (11.5-15.5) % Plt Count (125-369) X10(3)uL MPV (7.4-10.4) fL Add Manual Diff Neutrophils % (Manual) (46-82) % Band Neutrophils % (0-6) % Lymphocytes % (Manual) (13-37) % Monocytes % (Manual) (4-12) % Anisocytosis Microcytosis Ovalocytes Sodium (135-145) mmol/L Potassium (3.5-5.3) mmol/L Chloride (100-110) mmol/L Carbon Dioxide (21-32) mmol/L BUN (7-18) mg/dL Creatinine (0.70-1.30) mg/dL Est Cr Clr Drug Dosing mL/min Estimated GFR (MDRD) (>60) BUN/Creatinine Ratio (9-20) Glucose (80-116) mg/dL POC Glucose (80-116) mg/dL Lactic Acid 2.4 H (0.4-2.2) mmol/L Calcium (8.6-10.2) mg/dL Total Bilirubin (0.1-1.3) mg/dL AST (5-25) IU/L ALT (12-36) U/L Alkaline Phosphatase (56-112) IU/L Troponin I < 0.017 L (<0.017-0.056) ng/mL C-Reactive Protein (0.5-0.9) mg/dL NT-Pro-B Natriuret Pep 410 H (<=125) pg/mL Total Protein (6.0-8.0) g/dL Albumin (3.2-4.6) g/dL Globulin g/dL Albumin/Globulin Ratio TSH, Ultra Sensitive (0.36-3.74) IU/mL Urine Color Yellow (YELLOW) Urine Appearance Slightly cloudy (CLEAR) Urine pH 6.0 (5.0-6.5) Ur Specific [place] 1.025 (1.010-1.025) Urine Protein Trace (NEGATIVE) mg/dL Urine Glucose (UA) 50 H (NEGATIVE) mg/dL Urine Ketones Negative (NEGATIVE) mg/dL Urine Occult Blood Moderate H (NEGATIVE) Urine Nitrite Negative (NEGATIVE) Urine Bilirubin Small H (NEGATIVE) Urine Urobilinogen Normal (NEGATIVE) mg/dL Ur Leukocyte Esterase Negative (NEGATIVE) Urine RBC 0-5 (0) Urine WBC 0-5 (0) Ur Squamous Epith Cells Few H (NS,R,O) Urine Bacteria Few H (NS) Coarse Granular Casts Few H (NS) 08/22/18 08/23/18 08/23/18 Range/Units 20:49 06:20 06:20 WBC 2.6 L (4.5-12.0) X10-3/uL RBC 4.56 (4.30-5.75) x10(6)uL Hgb 12.2 (11.5-15.5) g/dL Hct 35.9 (30.0-51.3) % MCV 78.7 L (80-96) fL MCH 26.6 L (27.7-33.6) pg MCHC 33.8 (32.2-35.4) g/dL RDW 14.3 (11.5-15.5) % Plt Count 125 (125-369) X10(3)uL MPV 8.7 (7.4-10.4) fL Add Manual Diff Yes Neutrophils % (Manual) 46 (46-82) % Band Neutrophils % 4 (0-6) % Lymphocytes % (Manual) 30 (13-37) % Monocytes % (Manual) 20 H (4-12) % Anisocytosis Few Microcytosis Moderate H Ovalocytes Few Sodium 131 L (135-145) mmol/L Potassium 3.5 (3.5-5.3) mmol/L Chloride 97 L (100-110) mmol/L Carbon Dioxide 27 (21-32) mmol/L BUN 12 (7-18) mg/dL Creatinine 0.9 (0.70-1.30) mg/dL Est Cr Clr Drug Dosing 82.61 mL/min Estimated GFR (MDRD) > 60 (>60) BUN/Creatinine Ratio 13.3 (9-20) Glucose 205 H (80-116) mg/dL POC Glucose 298 H D (80-116) mg/dL Lactic Acid (0.4-2.2) mmol/L Calcium 7.9 L (8.6-10.2) mg/dL Total Bilirubin (0.1-1.3) mg/dL AST (5-25) IU/L ALT (12-36) U/L Alkaline Phosphatase (56-112) IU/L Troponin I (<0.017-0.056) ng/mL C-Reactive Protein (0.5-0.9) mg/dL NT-Pro-B Natriuret Pep (<=125) pg/mL Total Protein (6.0-8.0) g/dL Albumin (3.2-4.6) g/dL Globulin g/dL Albumin/Globulin Ratio TSH, Ultra Sensitive (0.36-3.74) IU/mL Urine Color (YELLOW) Urine Appearance (CLEAR) Urine pH (5.0-6.5) Ur Specific [place] (1.010-1.025) Urine Protein (NEGATIVE) mg/dL Urine Glucose (UA) (NEGATIVE) mg/dL Urine Ketones (NEGATIVE) mg/dL Urine Occult Blood (NEGATIVE) Urine Nitrite (NEGATIVE) Urine Bilirubin (NEGATIVE) Urine Urobilinogen (NEGATIVE) mg/dL Ur Leukocyte Esterase (NEGATIVE) Urine RBC (0) Urine WBC (0) Ur Squamous Epith Cells (NS,R,O) Urine Bacteria (NS) Coarse Granular Casts (NS) Result Diagrams: 08/23/18 06:20 08/23/18 06:20 David Results Last 24 hrs: Microbiology 08/22/18 17:12 Influenza Type A Antigen Screen - Final Nasal, Unspecified NEGATIVE INFLUENZA A VIRUS AG Influenza Type B Antigen Screen - Final NEGATIVE INFLUENZA B VIRUS AG - Problem List (1) Anorexia SNOMED Code(s): 20336458 ICD Code: R63.0 - ANOREXIA Status: Acute Current Visit: Yes (2) Elevated C-reactive protein SNOMED Code(s): 006013828951882 ICD Code: R79.82 - ELEVATED C-REACTIVE PROTEIN (CRP) Status: Acute Current Visit: Yes (3) Hyponatremia SNOMED Code(s): 55444251 ICD Code: E87.1 - HYPO-OSMOLALITY AND HYPONATREMIA Status: Acute Current Visit: Yes (4) Mild dehydration SNOMED Code(s): 0976133907275 ICD Code: E86.0 - DEHYDRATION Status: Acute Current Visit: Yes (5) Diabetes type 2 with atherosclerosis of arteries of extremities SNOMED Code(s): 675394342 ICD Code: E11.59 - TYPE 2 DIABETES MELLITUS WITH OTH CIRCULATORY COMPLICATIONS; I70.209 - UNSP ATHSCL [place] ARTERIES OF EXTREMITIES, UNSP EXTREMITY Status: Chronic Current Visit: No Problem Details: Continue Accu -Chek, and a diabetic diet. (6) PVD (peripheral vascular disease) SNOMED Code(s): 922543494 ICD Code: I73.9 - PERIPHERAL VASCULAR DISEASE, UNSPECIFIED Status: Chronic Current Visit: No Problem Details: Optimize glucose control Problem List Initiated/Reviewed/Updated: Yes Orders Last 24hrs: Active Orders 24 hr Category Date Time Status Admission Status [Patient Status] [ADT] Routine ADT 08/22/18 16:28 Active Blood Glucose Check, Bedside [RC] QIDACANDBED Care 08/22/18 17:15 Active Height and Weight [RC] 07 Care 08/22/18 17:15 Active Intake and Output [RC] 06,14,22 Care 08/22/18 17:16 Active Oxygen Therapy [RC] PRN Care 08/22/18 17:15 Active Pulse Oximetry [RC] PRN Care 08/22/18 17:16 Active Up ad Glory [RC] ASDIRECTED Care 08/22/18 17:15 Active VTE/DVT Education [RC] Per Unit Routine Care 08/22/18 17:15 Active Vital Signs [RC] 04,08,12,16,20,00 Care 08/22/18 17:15 Active Consistent Carbohydrate Diet [DIET] Diet 08/22/18 Dinner Active Heart Healthy Diet [DIET] Diet 08/22/18 Dinner Active Chest 2V [CR] Timed Exams 08/24/18 08:00 Ordered CBC WITH AUTO DIFF [HEME] DAILY Lab 08/24/18 05:00 Ordered CBC WITH AUTO DIFF [HEME] DAILY Lab 08/25/18 05:00 Ordered COMPREHENSIVE METABOLIC PN,CMP [CHEM] Timed Lab 08/24/18 05:00 Ordered CULTURE BLOOD [BC] Stat Lab 08/22/18 16:37 Received CULTURE BLOOD [BC] Stat Lab 08/22/18 16:48 Received Acetaminophen [Tylenol] Med 08/22/18 17:15 Active 650 mg PO Q4H PRN Aspirin [Halfprin] Med 08/23/18 09:00 Active 81 mg PO DAILY Azithromycin [Zithromax] Med 08/23/18 09:00 Active 250 mg PO DAILY Bisacodyl [Dulcolax] Med 08/22/18 17:15 Active 5 mg PO DAILY PRN Clopidogrel [Plavix] Med 08/23/18 09:00 Active 75 mg PO DAILY Enoxaparin [Lovenox] Med 08/22/18 18:00 Active 40 mg SUBCUT Q24H Magnesium Hydroxide [Milk of Magnesia] Med 08/22/18 17:15 Active 30 ml PO Q12H PRN Metoprolol Succinate [Toprol XL] Med 08/23/18 09:00 Active 12.5 mg PO DAILY Naproxen Sodium Med 08/22/18 17:45 Active 440 mg PO DAILY Ondansetron [Zofran] Med 08/22/18 17:15 Active 4 mg IV Q4H PRN SitaGLIPtin [Januvia] Med 08/23/18 09:00 Active 100 mg PO DAILY Sodium Chloride 0.9% [Normal Saline] 1,000 ml Med 08/22/18 17:15 Active IV ASDIRECTED Sodium Chloride 0.9% [Saline Flush] Med 08/22/18 16:45 Active 10 ml FLUSH ASDIRECTED PRN Zolpidem [Ambien] Med 08/22/18 17:15 Active 5 mg PO BEDTIME PRN atorvaSTATin [Lipitor] Med 08/22/18 21:00 Active 40 mg PO BEDTIME cefTRIAXone [Rocephin] Med 08/23/18 17:30 Active 1 gm IVPUSH Q24H metFORMIN [Glucophage] Med 08/23/18 08:00 Active 1,000 mg PO BIDMEALS Resuscitation Status Routine Resus Stat 08/22/18 17:15 Ordered EKG 12 Lead [EK] Routine Ther 08/22/18 15:54 Ordered Medication Orders Acetaminophen (Tylenol) 650 mg PO Q4H PRN PRN Reason: Pain (Mild 1-3)/fever Aspirin (Halfprin) 81 mg PO DAILY [facility] Last Admin: 08/23/18 08:27 Dose: 81 mg Atorvastatin Calcium (Lipitor) 40 mg PO BEDTIME [facility] Last Admin: 08/22/18 20:50 Dose: 40 mg Azithromycin (Zithromax) 250 mg PO DAILY [facility] Last Admin: 08/23/18 08:29 Dose: 250 mg Bisacodyl (Dulcolax) 5 mg PO DAILY PRN PRN Reason: Constipation Ceftriaxone Sodium (Rocephin) 1 gm IVPUSH Q24H [facility] Clopidogrel Bisulfate (Plavix) 75 mg PO DAILY [facility] Last Admin: 08/23/18 08:28 Dose: 75 mg Enoxaparin Sodium (Lovenox) 40 mg SUBCUT Q24H [facility] Last Admin: 08/22/18 18:24 Dose: 40 mg Sodium Chloride (Normal Saline) 1,000 mls @ 75 mls/hr IV ASDIRECTED [facility] Last Admin: 08/23/18 08:13 Dose: 75 mls/hr Infusion: 08/23/18 07:44 Dose: 75 mls/hr Admin: 08/22/18 18:24 Dose: 75 mls/hr Magnesium Hydroxide (Milk Of Magnesia) 30 ml PO Q12H PRN PRN Reason: Constipation Metformin HCl (Glucophage) 1,000 mg PO BIDMEALS [facility] Last Admin: 08/23/18 08:27 Dose: 1,000 mg Metoprolol Succinate (Toprol Xl) 12.5 mg PO DAILY [facility] Last Admin: 08/23/18 08:29 Dose: 12.5 mg Naproxen (Naproxen Sodium) 440 mg PO DAILY [facility] Last Admin: 08/23/18 08:28 Dose: 440 mg Admin: 08/22/18 18:23 Dose: 440 mg Ondansetron HCl (Zofran) 4 mg IV Q4H PRN PRN Reason: Nausea/Vomiting Sitagliptin Phosphate (Januvia) 100 mg PO DAILY [facility] Last Admin: 08/23/18 08:28 Dose: 100 mg Sodium Chloride (Saline Flush) 10 ml FLUSH ASDIRECTED PRN PRN Reason: IV Use Last Admin: 08/23/18 08:15 Dose: 10 ml Admin: 08/22/18 16:45 Dose: 10 ml Zolpidem Tartrate (Ambien) 5 mg PO BEDTIME PRN PRN Reason: Sleep Assessment/Plan Comment:: I feel that Dorian is ready to go back home today, the diagnosis of dehydration and hyponatremia entertained.. I don't find any overt signs of infection, blood pressure is stable and he now has better appetite. I will not change any of his medications
--- NOTE | 2018-08-23 11:24 | DISCH ---
DISCHARGE DATE: 08/23/2018 REASON FOR ADMISSION: 1. Pneumonia. 2. Dehydration. 3. Type 2 diabetes. 4. Amputation, toe, recent. DISCHARGE DIAGNOSES: 1. No evidence of pneumonia. 2. Dehydration and hyponatremia. 3. Type 2 diabetes. 4. Decreased appetite. HOSPITAL COURSE: Dorian was admitted, feeling weak and has no appetite. Was given some IV fluids. Initially, a diagnosis of pneumonia was entertained, but the chest x-ray reviewed by radiologist showed no evidence of infection. I discharged him with no changes to his medications. Advised to see his PCP and his surgeon at [facility] as previously scheduled. I spent less than 30 minutes in the discharge of the patient. /[id number] JOHN/MARIAN
[2018-08-23 13:20] VITALS: BP 119/65
[2018-08-23] MEDS ORDERED: cefTRIAXone 1 GM Vial IVPUSH SCH (17:30)
== END 2018-08-23 13:15 | disposition home or self-care (01) | DRG 641 ==
LOC: FB.ED 14:24 → FB.MS 16:28
PROVIDERS: ADMIT Family Medicine; ATTEND Family Medicine
DX: E86.0 Dehydration (principal); R79.82 Elevated C-reactive protein (CRP); I10 Essential (primary) hypertension; E87.1 Hypo-osmolality and hyponatremia; E11.42 Type 2 diabetes mellitus with diabetic polyneuropathy; E11.51 Type 2 diabetes mellitus with diabetic peripheral angiopathy without gangrene; Z79.84 Long term (current) use of oral hypoglycemic drugs; R63.0 Anorexia; M54.9 Dorsalgia, unspecified; G89.29 Other chronic pain; I25.10 Atherosclerotic heart disease of native coronary artery without angina pectoris; E78.00 Pure hypercholesterolemia, unspecified; N40.0 Benign prostatic hyperplasia without lower urinary tract symptoms; M19.90 Unspecified osteoarthritis, unspecified site; Z85.828 Personal history of other malignant neoplasm of skin; H54.7 Unspecified visual loss; M20.5X2 Other deformities of toe(s) (acquired), left foot; M20.5X1 Other deformities of toe(s) (acquired), right foot; Z79.82 Long term (current) use of aspirin; Z79.01 Long term (current) use of anticoagulants; E66.9 Obesity, unspecified; Z68.35 Body mass index [BMI] 35.0-35.9, adult
CPT/HCPCS: 36415; 71046; 80048; 80053; 81001; 82962; 83605; 83880; 84443; 84484; 85025; 86140; 87040; 87804; 87804-59; 93005; 96374; 99285; A9270-GY; J0696; J1650; J7030

== ENCOUNTER 2019-03-08 09:32 | Emergency (ER) | payer MEDICARE, BC ==
--- NOTE | 2019-03-08 10:13 | EDM.PDOC ---
ED HPI GENERAL MEDICAL PROBLEM - General Chief Complaint: Gastrointestinal Problem Stated Complaint: CONSTIPATED Time Seen by Provider: 03/08/19 09:32 Source of Information: Reports: Patient, Family History Limitations: Reports: No Limitations - History of Present Illness INITIAL COMMENTS - FREE TEXT/NARRATIVE: 73 y.o.w m with a H/O of Pancreatic CA, Dx's on January 04 2019, came to the ED with his due to abd. pain. Pt had his 2nd chemo yesterday at [facility]. His last BM was 1 week ago. Pt is on [place] to control his pain. Pt has a sedentary life style. He has to go to the bathroom 6-7 time a day. Bladder scan showed 320 postvoid. No N/V. pt thinks he is impacted. Poor apatite. No F/C no SOB or chest pain. Pt fees gen weak. No other acute med issues. BP 149/69 RR 18 Pulse ox 98% on RA Temp 36.8 Pulse 73 Onset Date: 03/01/19 Onset Time: 07:00 Duration: Day(s): Location: Reports: Abdomen, Generalized Quality: Reports: Dull Severity: Moderate Improves with: Reports: None Worsens with: Reports: Other (pain meds) Context: Reports: Other (Pancreatic CA) Associated Symptoms: Reports: Loss of Appetite - Related Data Allergies Allergy/AdvReac Type Severity Reaction Status Date / Time No Known Allergies Allergy Verified 01/23/19 10:34 Home Meds: Home Meds Clopidogrel Bisulfate [Clopidogrel] 75 mg PO DAILY 07/29/16 [History] Metoprolol Succinate [Toprol XL] 12.5 mg PO DAILY 01/04/17 [History] metFORMIN [Glucophage] 1,000 mg PO BIDMEALS 01/04/17 [History] Aspirin [Ecotrin EC] 81 mg PO DAILY 08/22/18 [History] Naproxen Sodium 440 mg PO DAILY 08/22/18 [History] Povidone-Iodine 1 applic IDERM DAILY 08/22/18 [History] SitaGLIPtin [Januvia] 100 mg PO DAILY 08/22/18 [History] atorvaSTATin Calcium [Lipitor] 40 mg PO BEDTIME 08/22/18 [History] Past Medical History HEENT History: Reports: Impaired Vision Cardiovascular History: Reports: CAD, High Cholesterol, Hypertension, PVD Gastrointestinal History: Reports: Other (See Below) Other Gastrointestinal History: intermittent constipation/diarrhea due to sahra , pancreatic cancer Genitourinary History: Reports: BPH Musculoskeletal History: Reports: Arthritis, Other (See Below) Other Musculoskeletal History: arthritis - knees, feet, 2 lumbar discs - degenerative joint disease Neurological History: Reports: Neuropathy, Diabetic, Neuropathy, Peripheral, Other (See Below) Endocrine/Metabolic History: Reports: Diabetes, Type II, Obesity/BMI 30+, Other (See Below) Other Endocrine/Metabolic History: thyroid gland enlarged on carotid CT angiogram, dx with NIDDM - 7 or 8 years ago, A1C 6 mo ago 5.4 Oncologic (Cancer) History: Reports: Basal Cell Carcinoma Other Oncologic History: removed from left shoulder Dermatologic History: Reports: Venous Stasis Dermatitis, Other (See Below) Other Dermatologic History: carcinoma on left shoulder removed several years ago - Infectious Disease History Infectious Disease History: Reports: Chicken Pox, Measles - Past Surgical History HEENT Surgical History: Reports: Tonsillectomy Cardiovascular Surgical History: Reports: Percutaneous Transluminal Angioplasty Other Cardiovascular Surgeries/Procedures: PCTA 01/02/17, carotid CT angiogram - less than 50% blockage on right, 55% stenosis on left GI Surgical History: Reports: Appendectomy, Cholecystectomy Other GI Surgeries/Procedures: 07/31/16 - sahra Musculoskeletal Surgical History: Reports: Other (See Below) Other Musculoskeletal Surgeries/Procedures:: amputation of all toes of the left foot related to osteomyelitis. Third toe amputated on the right foot. Social & Family History - Family History Family Medical History: Noncontributory Neurological: Reports: Alzheimers Disease - Tobacco Use Smoking Status *Q: Never Smoker - Caffeine Use Caffeine Use: Reports: Coffee Other Caffeine Use: 2 cups QAM ED ROS GENERAL - Review of Systems Review Of Systems: See Below Constitutional: Reports: Weakness HEENT: Reports: No Symptoms Respiratory: Reports: No Symptoms Cardiovascular: Reports: No Symptoms Endocrine: Reports: Other (NIDDM) GI/Abdominal: Reports: Abdominal Pain : Reports: No Symptoms Musculoskeletal: Reports: No Symptoms Skin: Reports: No Symptoms Neurological: Reports: No Symptoms Psychiatric: Reports: No Symptoms Hematologic/Lymphatic: Reports: No Symptoms Immunologic: Reports: No Symptoms ED EXAM, GI/ABD - Physical Exam Exam: See Below Exam Limited By: No Limitations General Appearance: Alert, WD/WN, Mild Distress, Obese Eyes: Bilateral: Normal Appearance Ears: Normal External Exam Nose: Normal Inspection Throat/Mouth: Normal Inspection, Normal Lips, Normal Voice, No Airway Compromise Head: Atraumatic, Normocephalic Neck: Normal Inspection, Supple, Non-Tender, Full Range of Motion Respiratory/Chest: No Respiratory Distress, Lungs Clear, Normal Breath Sounds, Chest Non-Tender Cardiovascular: Normal Peripheral Pulses, Regular Rate, Rhythm, No Edema GI/Abdominal Exam: No Abnormal Bruit, Pelvis Stable, Distended, Abnormal Bowel Sounds (Male) Exam: Deferred Rectal (Males) Exam: Fecal Impaction, Heme + Stool Back Exam: Normal Inspection Extremities: Normal Inspection, Normal Range of Motion, Non-Tender Neurological: Alert, Oriented, CN II-XII Intact, Normal Cognition, Normal Gait Psychiatric: Normal Affect, Normal Mood Skin Exam: Warm, Dry, Intact, Normal Color, No Rash Lymphatic: No Adenopathy Course - Vital Signs Text/Narrative:: 73 y.o.w m with a H/O of Pancreatic CA, Dx's on January 04 2019, came to the ED with his due to abd. pain. Pt had his 2nd chemo yesterday at [facility]. His last BM was 1 week ago. Pt is on [place] to control his pain. Pt has a sedentary life style. He has to go to the bathroom 6-7 time a day. Bladder scan showed 320 postvoid. No N/V. pt thinks he is impacted. Poor apatite. No F/C no SOB or chest pain. Pt fees gen weak. No other acute med issues. BP 149/69 RR 18 Pulse ox 98% on RA Temp 36.8 Pulse 73 PE: WNWD W M. pale. with gen abd. pain/distension Stool in rectal pouch. Labs: WBC 2.8 Lactic acid 2.4 HGB 10.4 Neutros 89% UA neg for UTI BUN 19 Cr 1.1 GFR > 60 Na 132 K 4.4 Ca 8.5 Amylase 16 Imaging: Abd flat and upright: Nonobstructive BGP (was taken after the impacted stool was removed from his rectum) Impression: Pancreatic CA, Constipation, low WBC, anemia, elevated lactic acid. Minor urinary retention (320 cc) Thx: Removed stool impaction from rectum manually, Soap suds and fleets enemas were applied. Reexam: Pt felt better after the Thx 12.01pm Consultation: Dr. Heredia, Oncologist, [facility]: WBC 2.8 Lactic acid 2.4 is expected after Chemo. Plan: D/C with instructions Last Recorded V/S: Last Vital Signs Temp 36.4 C 03/08/19 09:32 Pulse 78 03/08/19 09:32 Resp 18 03/08/19 09:32 BP 147/69 H 03/08/19 09:32 Pulse Ox 98 03/08/19 09:32 - Orders/Labs/Meds Orders: Active Orders 24 hr Category Date Time Status Bladder Scan [RC] ASDIRECTED Care 03/08/19 11:12 Active Enema [RC] ASDIRECTED Care 03/08/19 10:07 Active Enema [RC] ASDIRECTED Care 03/08/19 10:41 Active Abdomen 2V AP Flat Upright [CR] Stat Exams 03/08/19 11:11 Taken Heparin Sodium [Heparin Lock Flush 100 Units/ML] Med 03/08/19 12:54 Active 300 units FLUSH ASDIRECTED PRN Medication Orders Heparin Sodium (Porcine) (Heparin Lock Flush 100 Units/Ml) 300 units FLUSH ASDIRECTED PRN PRN Reason: port flushing Last Admin: 03/08/19 12:57 Dose: 300 units Labs: Laboratory Tests 03/08/19 03/08/19 03/08/19 Range/Units 10:25 10:25 10:25 WBC 2.8 L (4.5-12.0) X10-3/uL RBC 4.12 L (4.30-5.75) x10(6)uL Hgb 10.8 L (13.5-17.8) g/dL Hct 32.1 (30.0-51.3) % MCV 77.9 L (80-96) fL MCH 26.3 L (27.7-33.6) pg MCHC 33.8 (32.2-35.4) g/dL RDW 16.1 H (11.5-15.5) % Plt Count 81 L (125-369) X10(3)uL MPV 9.0 (7.4-10.4) fL Neut % (Auto) 89.0 H (46-82) % Lymph % (Auto) 8.5 L (13-37) % [place]offey % (Auto) 1.9 L (4-12) % Eos % (Auto) 0 L (1.0-5.0) % Baso % (Auto) 1 (0-2) % Neut # (Auto) 2.5 (1.6-8.3) # Lymph # (Auto) 0.2 L (0.6-5.0) # Coffey # (Auto) 0.1 (0.0-1.3) # Eos # (Auto) 0.0 (0.0-0.8) # Baso # (Auto) 0.0 (0.0-0.2) # PT 12.0 H (8.7-11.1) INR 1.24 H (0.89-1.13) Sodium 132 L (135-145) mmol/L Potassium 4.4 (3.5-5.3) mmol/L Chloride 97 L (100-110) mmol/L Carbon Dioxide 24 (21-32) mmol/L BUN 19 H (7-18) mg/dL Creatinine 0.8 (0.70-1.30) mg/dL Est Cr Clr Drug Dosing 92.94 mL/min Estimated GFR (MDRD) > 60 (>60) BUN/Creatinine Ratio 23.8 H (9-20) Glucose 243 H D (80-116) mg/dL Lactic Acid (0.4-2.2) mmol/L Calcium 8.5 L (8.6-10.2) mg/dL Amylase (25-115) U/L Urine Color (YELLOW) Urine Appearance (CLEAR) Urine pH (5.0-6.5) Ur Specific [place] (1.010-1.025) Urine Protein (NEGATIVE) mg/dL Urine Glucose (UA) (NORMAL) mg/dL Urine Ketones (NEGATIVE) mg/dL Urine Occult Blood (NEGATIVE) Urine Nitrite (NEGATIVE) Urine Bilirubin (NEGATIVE) Urine Urobilinogen (NEGATIVE) mg/dL Ur Leukocyte Esterase (NEGATIVE) Urine RBC (0-5) Urine WBC (0-5) Ur Squamous Epith Cells (NS,R,O) Urine Bacteria (NS) 03/08/19 03/08/19 03/08/19 Range/Units 10:25 12:00 12:15 WBC (4.5-12.0) X10-3/uL RBC (4.30-5.75) x10(6)uL Hgb (13.5-17.8) g/dL Hct (30.0-51.3) % MCV (80-96) fL MCH (27.7-33.6) pg MCHC (32.2-35.4) g/dL RDW (11.5-15.5) % Plt Count (125-369) X10(3)uL MPV (7.4-10.4) fL Neut % (Auto) (46-82) % Lymph % (Auto) (13-37) % [place]offey % (Auto) (4-12) % Eos % (Auto) (1.0-5.0) % Baso % (Auto) (0-2) % Neut # (Auto) (1.6-8.3) # Lymph # (Auto) (0.6-5.0) # Coffey # (Auto) (0.0-1.3) # Eos # (Auto) (0.0-0.8) # Baso # (Auto) (0.0-0.2) # PT (8.7-11.1) INR (0.89-1.13) Sodium (135-145) mmol/L Potassium (3.5-5.3) mmol/L Chloride (100-110) mmol/L Carbon Dioxide (21-32) mmol/L BUN (7-18) mg/dL Creatinine (0.70-1.30) mg/dL Est Cr Clr Drug Dosing mL/min Estimated GFR (MDRD) (>60) BUN/Creatinine Ratio (9-20) Glucose (80-116) mg/dL Lactic Acid 2.4 H (0.4-2.2) mmol/L Calcium (8.6-10.2) mg/dL Amylase 16 L (25-115) U/L Urine Color [place] (YELLOW) Urine Appearance Clear (CLEAR) Urine pH 5.0 (5.0-6.5) Ur Specific [place] 1.025 (1.010-1.025) Urine Protein Negative (NEGATIVE) mg/dL Urine Glucose (UA) Normal (NORMAL) mg/dL Urine Ketones 15 H (NEGATIVE) mg/dL Urine Occult Blood Negative (NEGATIVE) Urine Nitrite Negative (NEGATIVE) Urine Bilirubin Small H (NEGATIVE) Urine Urobilinogen 4 H (NEGATIVE) mg/dL Ur Leukocyte Esterase Negative (NEGATIVE) Urine RBC 0-5 (0-5) Urine WBC 0-5 (0-5) Ur Squamous Epith Cells Few H (NS,R,O) Urine Bacteria Moderate H (NS) Meds: Medications Generic Name Dose Route Start Last Admin Trade Name Freq PRN Reason Stop Dose Admin Heparin Sodium (Porcine) 300 units 03/08/19 12:54 03/08/19 12:57 Heparin Lock Flush 100 Units/Ml FLUSH 300 units ASDIRECTED PRN Administration port flushing Departure - Departure Time of Disposition: 12:38 Disposition: Home, Self-Care 01 Condition: Good Clinical Impression: Pancreatic cancer Qualifiers: Pancreatic malignancy location: unspecified Qualified Code(s): C25.9 - Malignant neoplasm of pancreas, unspecified - Discharge Information Instructions: Constipation, Adult, [id number], Pancreatic Cancer Referrals: Manny Velasquez MD [Primary Care Provider] - Forms: ED Department Discharge Additional Instructions: Please continue your meds, please take oatmeal daily, please f/u with your PMD, come back if your symptoms get worse acutely - My Orders Last 24 Hours: My Active Orders 03/08/19 10:07 Enema [RC] ASDIRECTED 03/08/19 10:41 Enema [RC] ASDIRECTED 03/08/19 11:11 Abdomen 2V AP Flat Upright [CR] Stat 03/08/19 11:12 Bladder Scan [RC] ASDIRECTED 03/08/19 12:54 Heparin Sodium [Heparin Lock Flush 100 Units/ML] 300 units FLUSH ASDIRECTED PRN - Assessment/Plan Last 24 Hours: My Active Orders 03/08/19 10:07 Enema [RC] ASDIRECTED 03/08/19 10:41 Enema [RC] ASDIRECTED 03/08/19 11:11 Abdomen 2V AP Flat Upright [CR] Stat 03/08/19 11:12 Bladder Scan [RC] ASDIRECTED 03/08/19 12:54 Heparin Sodium [Heparin Lock Flush 100 Units/ML] 300 units FLUSH ASDIRECTED PRN
[2019-03-08] MEDS ORDERED: Heparin Sodium 10 Units/ML 5 ML Syringe FLUSH PRN (12:50)
[2019-03-08 15:16] VITALS: BP 117/66; PULSE 73
== END 2019-03-08 13:10 | disposition home or self-care (01) ==
LOC: FB.ED 09:32
DX: C25.9 Malignant neoplasm of pancreas, unspecified (principal); R33.9 Retention of urine, unspecified; K59.00 Constipation, unspecified; I10 Essential (primary) hypertension; E78.00 Pure hypercholesterolemia, unspecified; I25.10 Atherosclerotic heart disease of native coronary artery without angina pectoris; E11.42 Type 2 diabetes mellitus with diabetic polyneuropathy; Z79.84 Long term (current) use of oral hypoglycemic drugs; Z79.82 Long term (current) use of aspirin; Z79.899 Other long term (current) drug therapy; R10.9 Unspecified abdominal pain
CPT/HCPCS: 51798; 74019; 80048; 81001; 82150; 82270; 83605; 85025; 85610; 99283; 99284; J1642